=== PATIENT | male | born 1970 | race Caucasian/White ===

== ENCOUNTER → 2018-11-10 | Outpatient (CLI) | payer OTHER ==
--- NOTE | 2018-11-10 13:55 | MR ---
EXAMINATION TYPE: MR lumbar spine wo con DATE OF EXAM: 11/10/2018 COMPARISON: None HISTORY: Low back pain since 2006 TECHNIQUE: Multiplanar, multisequence images of the lumbar spine were acquired. L1-L2: Normal disc appearance without desiccation. No herniation, protrusion or disc bulging. No ca nal stenosis is present. Foramina are patent bilaterally. L2-L3: Facet arthropathy is causing some posterior lateral mass effect on the thecal sac from the lef t, no disc herniation or central stenosis. L3-L4: There is some facet arthropathy with hypertrophic change of the facets, some posterior lateral mass effect on the thecal sac in the left may be contributed by the scoliosis, no significant centra l stenosis. Posterior fusion of endplate disc complex causes mild anterior mass effect on the thecal sac. L4-L5: Normal disc appearance without desiccation. No herniation, protrusion or disc bulging. No ca nal stenosis is present. Foramina are patent bilaterally. L5-S1: Some minimal foraminal encroachment due to lateral extension endplate disc complex towards the right, no significant central stenosis or evident disc herniation Lumbar segments are intact. No paraspinal masses are identified. Conus medullaris has a normal appe arance. There is a gentle spinal curvature present. Lumbar vertebral bodies show preserved height. Th ere is multilevel spondylosis with endplate discogenic marrow signal change. Loss of disc height sign al is greatest at L3-4 compatible disc desiccation and degenerative disc disease. No significant spin al stenosis. IMPRESSION: Degenerative disc disease, scoliosis, facet arthropathy as described.
== END | disposition home or self-care (01) ==
LOC: RADMRIMAIN 09:41
PROVIDERS: ATTEND Physician Assistant
DX: M51.36 Other intervertebral disc degeneration, lumbar region (principal); M41.86 Other forms of scoliosis, lumbar region; M46.96 Unspecified inflammatory spondylopathy, lumbar region
CPT/HCPCS: 72148

== ENCOUNTER 2020-10-22 15:35 | Inpatient (IN) | payer OTHER ==
[2020-10-22] MEDS ORDERED: ACETAMINOPHEN TAB 325 MG TAB PO PRN (15:38)
--- NOTE | 2020-10-22 15:41 | ED ---
SOB HPI - General Stated Complaint: Covid+ sob Time Seen by Provider: 10/22/20 15:38 - History of Present Illness Initial Comments: Is a 50-year-old male with a history of hypertension who presents emergent department for cough, shortness of breath, loss of taste, generalized malaise. The patient states his symptoms started on 10/15/2020. It started with some upper respiratory symptoms and a mild cough however progress throughout the week. [facility] advice of the [place]. The patient was evaluated there and found to be 85% on room air when he arrived. This improved with a few liters of oxygen. He had a Coban swab performed that was positive. He was given a dose of oral Decadron at 10 mg and aspirin 324 mg and sent to the emergency department for further evaluation. The patient states that he is an ex-smoker however quit about 10-12 years ago. Otherwise he does not complain of any other medical problems. He denies any chest pain, nausea, vomiting, diarrhea. No leg swelling or pain. He otherwise denies any other acute complaints at this time. On arrival the patient appeared tachypneic and was satting 92% on 4 L. He was taken off of oxygen and desatted down to 88%. He was placed on 2 L nasal cannula with improvement to 93%. - Related Data Home Medications Medication Instructions Recorded Confirmed Cyclobenzaprine [Flexeril] 10 mg PO HS PRN 10/22/20 10/22/20 HYDROcodone/APAP 10-325MG [[place] 2 tab PO Q8H PRN 10/22/20 10/22/20 10-325] Meloxicam [Mobic] 7.5 mg PO DAILY 10/22/20 10/22/20 Prazosin HCl 4 mg PO HS 10/22/20 10/22/20 amLODIPine [Norvasc] 10 mg PO DAILY 10/22/20 10/22/20 atenoloL [Atenolol] 25 mg PO BID 10/22/20 10/22/20 traZODone HCL 150 mg PO HS PRN 10/22/20 10/22/20 Allergies Allergy/AdvReac Type Severity Reaction Status Date / Time No Known Allergies Allergy Verified 10/22/20 17:16 Review of Systems ROS Statement: Those systems with pertinent positive or pertinent negative responses have been documented in the HPI. ROS Other: All systems not noted in ROS Statement are negative. General Exam - General Exam Comments Initial Comments: Constitutional: Awake alert patient appears diaphoretic and uncomfortable Head: Normocephalic atraumatic Eyes: no conjunctival injection No scleral icterus EOMI Neck: No JVD Supple Heart: Tachycardia with regular rhythm normal S1-S2 no murmurs Lungs: Tachypneic Clear to auscultation bilaterally No wheezing No rales Abdomen: Soft nondistended nontender Extremities: Non edematous DP pulses intact Radial pulses intact Neuro: A&Ox3 No focal neurologic deficits Psych: Appropriate mood and affect Course Vital Signs 10/22/20 10/22/20 10/22/20 15:50 16:34 17:11 Temperature 100.5 F H 99 F Pulse Rate 109 H 98 Respiratory 22 22 20 Rate Blood Pressure 117/80 131/75 O2 Sat by Pulse 91 L 95 Oximetry - Reevaluation(s) Reevaluation #1: EKG showing sinus tachycardia with a rate of 102. There are no abnormal ST 7 changes or T-wave inversions. QTC 448. Other intervals normal. No ectopy. 10/22/20 16:10 Medical Decision Making - Medical Decision Making This 50-year-old male who presents emergency department for worsening cough and shortness of breath. The patient was found to be coated positive at outside facility and paperwork was supplied. He was given 10 mg of Decadron at that time and sent here. The patient was hypoxic at outside facility. He does appear tachypneic still however is saturating about 94% on 4 L currently. Chest x-ray consistent with Coban pneumonia. The patient's labwork was reviewed and showed an elevated CRP and LDH. D-dimer was not elevated. He did have a mild acute kidney injury site started him on gentle IV fluids. The patient is going to be admitted for hypoxia and Coban pneumonia for further treatment. - Lab Data Result diagrams: 10/22/20 16:30 10/22/20 16:30 Lab Results 10/22/20 10/22/20 10/22/20 Range/Units 16:30 16:30 16:30 WBC 4.9 (3.8-10.6) k/uL RBC 5.24 (4.30-5.90) m/uL Hgb 15.5 (13.0-17.5) gm/dL Hct 44.7 (39.0-53.0) % MCV 85.3 (80.0-100.0) fL MCH 29.6 (25.0-35.0) pg MCHC 34.7 (31.0-37.0) g/dL RDW 13.3 (11.5-15.5) % Plt Count 191 (150-450) k/uL MPV 7.6 Neutrophils % 73 % Lymphocytes % 19 % Monocytes % 6 % Eosinophils % 0 % Basophils % 1 % Neutrophils # 3.6 (1.3-7.7) k/uL Lymphocytes # 1.0 (1.0-4.8) k/uL Monocytes # 0.3 (0-1.0) k/uL Eosinophils # 0.0 (0-0.7) k/uL Basophils # 0.0 (0-0.2) k/uL PT 9.9 (9.0-12.0) sec INR 0.9 (<1.2) APTT 28.2 (22.0-30.0) sec D-Dimer 0.38 (<0.60) mg/L FEU Sodium 131 L (137-145) mmol/L Potassium 4.2 (3.5-5.1) mmol/L Chloride 96 L (98-107) mmol/L Carbon Dioxide 27 (22-30) mmol/L Anion Gap 8 mmol/L BUN 23 H (9-20) mg/dL Creatinine 1.56 H (0.66-1.25) mg/dL Est GFR (CKD-EPI)AfAm 59 (>60 ml/min/1.73 sqM) Est GFR (CKD-EPI)NonAf 51 (>60 ml/min/1.73 sqM) Glucose 111 H (74-99) mg/dL Plasma Lactic Acid Torsten (0.7-2.0) mmol/L Calcium 8.1 L (8.4-10.2) mg/dL Magnesium 2.0 (1.6-2.3) mg/dL Total Bilirubin 1.2 (0.2-1.3) mg/dL AST 54 (17-59) U/L ALT 31 (4-49) U/L Alkaline Phosphatase 42 (38-126) U/L Lactate Dehydrogenase 822 H (313-618) U/L C-Reactive Protein 40.4 H (<10.0) mg/L Total Protein 7.1 (6.3-8.2) g/dL Albumin 3.8 (3.5-5.0) g/dL 10/22/20 Range/Units 16:30 WBC (3.8-10.6) k/uL RBC (4.30-5.90) m/uL Hgb (13.0-17.5) gm/dL Hct (39.0-53.0) % MCV (80.0-100.0) fL MCH (25.0-35.0) pg MCHC (31.0-37.0) g/dL RDW (11.5-15.5) % Plt Count (150-450) k/uL MPV Neutrophils % % Lymphocytes % % Monocytes % % Eosinophils % % Basophils % % Neutrophils # (1.3-7.7) k/uL Lymphocytes # (1.0-4.8) k/uL Monocytes # (0-1.0) k/uL Eosinophils # (0-0.7) k/uL Basophils # (0-0.2) k/uL PT (9.0-12.0) sec INR (<1.2) APTT (22.0-30.0) sec D-Dimer (<0.60) mg/L FEU Sodium (137-145) mmol/L Potassium (3.5-5.1) mmol/L Chloride (98-107) mmol/L Carbon Dioxide (22-30) mmol/L Anion Gap mmol/L BUN (9-20) mg/dL Creatinine (0.66-1.25) mg/dL Est GFR (CKD-EPI)AfAm (>60 ml/min/1.73 sqM) Est GFR (CKD-EPI)NonAf (>60 ml/min/1.73 sqM) Glucose (74-99) mg/dL Plasma Lactic Acid Torsten 1.3 (0.7-2.0) mmol/L Calcium (8.4-10.2) mg/dL Magnesium (1.6-2.3) mg/dL Total Bilirubin (0.2-1.3) mg/dL AST (17-59) U/L ALT (4-49) U/L Alkaline Phosphatase (38-126) U/L Lactate Dehydrogenase (313-618) U/L C-Reactive Protein (<10.0) mg/L Total Protein (6.3-8.2) g/dL Albumin (3.5-5.0) g/dL Disposition Clinical Impression: Pneumonia due to COVID-19 virus Disposition: ADMITTED IP TO THIS HOSP Condition: Serious Referrals: [facility],Clinic [Primary Care Provider] - 1-2 days
--- NOTE | 2020-10-22 16:48 | XR ---
EXAMINATION TYPE: XR chest 1V portable DATE OF EXAM: 10/22/2020 COMPARISON: 08/21/2010. HISTORY: Cough and Covid positive. TECHNIQUE: Single frontal view of the chest is obtained. FINDINGS: There is mild to moderate patchy opacities in the mid to lower lungs, greater on the right . No significant pleural effusion, or pneumothorax seen. The cardiac silhouette size is within ric l limits. The osseous structures are intact. IMPRESSION: Mild to moderate infiltrates.
[2020-10-22 17:15] LABS: Albumin 3.8 g/dL (3.5-5.0); Calcium 8.1 mg/dL (8.4-10.2); D-Dimer 0.38 mg/L FEU (<0.60); INR 0.9 (<1.2); Partial Thromboplastin Time 28.2 sec (22.0-30.0); Potassium 4.2 mmol/L (3.5-5.1); Prothrombin Time 9.9 sec (9.0-12.0); Total Bilirubin 1.2 mg/dL (0.2-1.3); Total Protein 7.1 g/dL (6.3-8.2)
[2020-10-22 17:17] LABS: Basophils % (A) 1 %; Eosinophils % (A) 0 %; HCT 44.7 % (39.0-53.0); HGB 15.5 gm/dL (13.0-17.5); Lymphocytes % (A) 19 %; MCH 29.6 pg (25.0-35.0); MCHC 34.7 g/dL (31.0-37.0); MCV 85.3 fL (80.0-100.0); Mean Platelet Volume 7.6; Monocytes # (A) 0.3 k/uL (0-1.0); Monocytes % (A) 6 %; Neutrophils # (A) 3.6 k/uL (1.3-7.7); Neutrophils % (A) 73 %; Platelet Count 191 k/uL (150-450); RBC 5.24 m/uL (4.30-5.90); RDW 13.3 % (11.5-15.5); WBC 4.9 k/uL (3.8-10.6)
[2020-10-22 17:21] LABS: C Reactive Protein 40.4 mg/L (<10.0)
[2020-10-22] MEDS ORDERED: IPRATROPIUM-ALBUTEROL 3 ML NEB INHALATION STA (17:39)
[2020-10-22] MEDS ORDERED: NALOXONE 0.4 MG/ML 1 ML VIAL IV PRN (17:47)
[2020-10-22] MEDS: ALBUTEROL HFA INHALER INHALATION PRN (18:14)
[2020-10-22 18:27] LABS: ABG Base Excess 1.6 mmol/L; ABG HCO3 26 mmol/L (21-25); ABG Oxygen Saturation 91.7 % (94-97); ABG PCO2 40 mmHg (35-45); ABG PH 7.42 (7.35-7.45); ABG TCO2 27 mmol/L (19-24); Allen Test Performed? Yes
[2020-10-22 18:28] LABS: ABG PO2 59 mmHg (83-108)
[2020-10-22] MEDS: SODIUM CHLORIDE 0.9% 1,000 ML IV SCH (20:13)
[2020-10-22] MEDS: HYDROcodone/APAP 10-325MG 1 EACH TAB PO PRN (20:14)
[2020-10-22] MEDS ORDERED: traZODone HCL 50 MG TAB PO PRN (22:30)
[2020-10-22] MEDS: atenoloL 25 MG TAB PO SCH (22:58)
[2020-10-22] MEDS: DOXAZOSIN 4 MG TAB PO SCH (22:58)
[2020-10-23] MEDS ORDERED: ALPRAZolam 0.25 MG TAB PO PRN (00:42)
--- NOTE | 2020-10-23 00:57 | P.HPIM ---
History of Present Illness H&P Date: 10/22/20 Chief Complaint: SOB 50 -year-old male with hypertension Comes in due to hypoxemia. He reports one-week history of progressive shortness of breath nonproductive cough malaise and loss of taste sensation. He was very surprised one was told that he tested positive for covid. He believes that he had good immune system as he was healthy for the past 8 years he claims that he was using masks and denies any contact with any Covid patient's. For the past week he thought that he's coming down on the pneumonia or some cold symptoms. Today he went to an urgent care and was found to have hypoxemia in the mid 80s on room air and tested positive for Covid. He denies any fevers or chills he denies any body aches he denies any GI symptoms he denies any chest pain. However he does feel congested He is otherwise compliant with his medications In the ED he was placed on oxygen currently on 4 L nasal cannula he was given Decadron chest x-ray showed mild to moderate infiltrates Review of Systems Pertinent positives as noted in HPI. All other systems were reviewed and are negative Past Medical History Past Medical History: Hypertension Additional Past Medical History / Comment(s): back pain History of Any Multi-Drug Resistant Organisms: None Reported Past Surgical History: No Surgical Hx Reported Past Psychological History: No Psychological Hx Reported Smoking Status: Former smoker Past Alcohol Use History: None Reported Past Drug Use History: None Reported - Past Family History Family Family Medical History: No Reported History Medications and Allergies Home Medications Medication Instructions Recorded Confirmed Type Cyclobenzaprine [Flexeril] 10 mg PO HS PRN 10/22/20 10/22/20 History HYDROcodone/APAP 10-325MG [[place] 2 tab PO Q8H PRN 10/22/20 10/22/20 History 10-325] Meloxicam [Mobic] 7.5 mg PO DAILY 10/22/20 10/22/20 History Prazosin HCl 4 mg PO HS 10/22/20 10/22/20 History amLODIPine [Norvasc] 10 mg PO DAILY 10/22/20 10/22/20 History atenoloL [Atenolol] 25 mg PO BID 10/22/20 10/22/20 History traZODone HCL 150 mg PO HS PRN 10/22/20 10/22/20 History Allergies Allergy/AdvReac Type Severity Reaction Status Date / Time No Known Allergies Allergy Verified 10/22/20 17:16 Physical Exam Vitals: Vital Signs Temp Pulse Resp BP Pulse Ox 10/22/20 19:16 96 20 139/78 94 L 10/22/20 18:17 96 20 122/71 93 L 10/22/20 17:11 99 F 98 20 131/75 95 10/22/20 16:34 22 10/22/20 15:50 100.5 F H 109 H 22 117/80 91 L Intake and Output 10/22/20 10/22/20 10/22/20 06:59 14:59 22:59 Other: Weight 136.078 kg Constitutional: No acute distress, conversant, pleasant Eyes: Anicteric sclerae, moist conjunctiva, Pupils equal round reactive to light ENMT: NC/AT Oropharynx clear, no erythema, or exudates Neck: Supple, FROM, no masses, or JVD No carotid bruits No thyromegaly Lungs: Clear to auscultation Clear to percussion Normal respiratory effort, no accessory muscle use Cardiovascular: Heart regular in rate and rhythm, No murmurs, gallops, or rubs No peripheral edema Abdominal: Soft Nontender, no guarding, rebound or rigidity Abdomen moving with respiration Normoactive bowel sounds No hepatomegaly, No splenomegaly No palpable mass No abdominal wall hernia noted Skin: Normal temperature, tone, texture, turgor No induration No subcutaneous nodules No rash, lesions No ulcers Extremities: No digital cyanosis No clubbing Pedal pulses intact and symmetrical Radial pulses intact and symmetrical No calf tenderness Psychiatric: Alert and oriented to person, place and time Appropriate affect fair judgement Neuro Muscles Strength 5/5 in all 4 extremities Sensation to light touch grossly present throughout Cranial nerves II-XII grossly intact No focal sensory deficits Lymphatics: no palpable cervical or supraclavicular , or inguinal lymph nodes Results CBC & Chem 7: 10/22/20 16:30 10/22/20 16:30 Labs: Abnormal Lab Results - Last 24 Hours (Table) 10/22/20 10/22/20 Range/Units 16:30 18:20 ABG pO2 59 L* (83-108) mmHg ABG HCO3 26 H (21-25) mmol/L ABG Total CO2 27 H (19-24) mmol/L ABG O2 Saturation 91.7 L (94-97) % Sodium 131 L (137-145) mmol/L Chloride 96 L (98-107) mmol/L BUN 23 H (9-20) mg/dL Creatinine 1.56 H (0.66-1.25) mg/dL Glucose 111 H (74-99) mg/dL Calcium 8.1 L (8.4-10.2) mg/dL Lactate Dehydrogenase 822 H (313-618) U/L C-Reactive Protein 40.4 H (<10.0) mg/L Assessment and Plan Assessment: Acute hypoxic respiratory failure Covid pneumonitis Hypertension AK I Plan Supportive care Supplemental oxygen as needed Patient started on Decadron Gentle IV fluid hydration with normal saline Negative LDH elevated CRP elevated Pulmonary consult CODE STATUS: Full code DVT prophylaxis: Lovenox Discussed with: Patient, ER, RN Anticipated length of stay more than [address]: Home A total of 75 minutes was spent on the care of this complex patient more than 50% of the time was spent in counseling and care coordination.
[2020-10-23 04:59] LABS: Ferritin 337.5 ng/mL (22.0-322.0)
[2020-10-23] MEDS: SODIUM CHLORIDE 0.9% 1,000 ML IV SCH ×2 (08:33→21:00)
[2020-10-23] MEDS: atenoloL 25 MG TAB PO SCH ×2 (08:34→21:00)
[2020-10-23] MEDS: ENOXAPARIN 40 MG/0.4 ML SYRINGE SQ SCH (08:34)
[2020-10-23] MEDS: DEXAMETHASONE SOD PHOSPHATE 10 MG/ML 1 ML VIAL IV SCH (08:34)
[2020-10-23] MEDS: amLODIPine 10 MG TAB PO SCH (08:34)
[2020-10-23] MEDS: MELOXICAM 7.5 MG TAB PO SCH (08:34)
[2020-10-23] MEDS: ALBUTEROL HFA INHALER INHALATION PRN (11:32)
[2020-10-23 11:41] LABS: African American GFR (CKD) >90 (>60 ml/min/1.73 sqM); Anion Gap 14 mmol/L; Blood Urea Nitrogen 25 mg/dL (9-20); Calcium 8.3 mg/dL (8.4-10.2); Carbon Dioxide 24 mmol/L (22-30); Chloride 97 mmol/L (98-107); Glucose 170 mg/dL (74-99); Non-African American GFR(CKD) 84 (>60 ml/min/1.73 sqM); Potassium 4.6 mmol/L (3.5-5.1); Sodium 135 mmol/L (137-145)
--- NOTE | 2020-10-23 11:54 | P.CNPUL ---
History of Present Illness Consult date: 10/23/20 Reason for consult: dyspnea, pneumonia History of present illness: 70-year-old male patient who was hospitalized for COVID 19 related pneumonia and the patient is currently on 4 L of oxygen by nasal cannula. The patient came into the emergency room because of one-week history of progressive worsening shortness of breath and cough and malaise and loss in the paced. In the emergency, the patient was found to be hypoxic at a pulse ox of 80% on room air. He tested positive for COVID patient is currently on 4 L about 2 by nasal cannula. The chest x-ray is showing diffuse bilateral pulmonary infiltrates patchy in the mid and the lower lung brady bilaterally more so on the right. The patient also had a LDH level of 822 and the pro-calcitonin level was 0.15 and a CRP was 40.4. Initial creatinine was 1.5 and with fluid resuscitation, the patient's creatinine improved and normalized. At this point in time, the patient is receiving Decadron 6 mg IV on a daily basis. He will be also good candidate for him to severe. He has no major medical problems and comorbidities. He has hypertension and takes and hypertensive medication and takes also medication for BPH. He is obese and he carries a mass index of 39.6 Review of Systems Constitutional: Reports fatigue, Reports weakness Eyes: denies as per HPI, denies blurred vision, denies bulging eye, denies decreased vision, denies diplopia, denies discharge, denies dry eye, denies irritation, denies itching, denies pain, denies photophobia, denies loss of peripheral vision, denies loss of vision, denies tunnel vision/blind spots Ears: deny: decreased hearing, ear discharge, earache, tinnitus Ears, nose, mouth and throat: Reports as per HPI Breasts: absent: as per HPI, gynecomastia Cardiovascular: Reports dyspnea on exertion Respiratory: Reports cough, Reports dyspnea Gastrointestinal: Reports as per HPI Genitourinary: Reports as per HPI Musculoskeletal: Reports as per HPI Musculoskeletal: absent: ankle pain, ankle stiffness, ankle swelling Integumentary: Reports as per HPI Neurological: Reports as per HPI Psychiatric: Reports as per HPI Endocrine: Reports as per HPI Hematologic/Lymphatic: Reports as per HPI Allergic/Immunologic: Reports as per HPI Past Medical History Past Medical History: GERD/Reflux, Hypertension, Respiratory Disorder Additional Past Medical History / Comment(s): Pt tested covid + on 10/22/20 at [facility]. Other hx: Chronic low back pain, bronchitis History of Any Multi-Drug Resistant Organisms: None Reported Past Surgical History: Appendectomy, Tonsillectomy Past Anesthesia/Blood Transfusion Reactions: No Reported Reaction Smoking Status: Former smoker - Past Family History Father History Unknown: Yes Family Medical History: Unable to Obtain Additional Family Medical History / Comment(s): Pt grew up in foster care and only knows that his father is . Mother History Unknown: Yes Family Medical History: Unable to Obtain Additional Family Medical History / Comment(s): Pt grew up in foster care and only knows his mother is . Family Family Medical History: No Reported History Medications and Allergies Home Medications Medication Instructions Recorded Confirmed Type Cyclobenzaprine [Flexeril] 10 mg PO HS PRN 10/22/20 10/22/20 History HYDROcodone/APAP 10-325MG [[place] 2 tab PO Q8H PRN 10/22/20 10/22/20 History 10-325] Meloxicam [Mobic] 7.5 mg PO DAILY 10/22/20 10/22/20 History Prazosin HCl 4 mg PO HS 10/22/20 10/22/20 History amLODIPine [Norvasc] 10 mg PO DAILY 10/22/20 10/22/20 History atenoloL [Atenolol] 25 mg PO BID 10/22/20 10/22/20 History traZODone HCL 150 mg PO HS PRN 10/22/20 10/22/20 History Allergies Allergy/AdvReac Type Severity Reaction Status Date / Time No Known Allergies Allergy Verified 10/22/20 17:16 Physical Exam Vitals: Vital Signs Temp Pulse Pulse Resp BP BP Pulse Ox 10/23/20 08:00 97.5 F L 71 18 143/81 93 L 10/23/20 05:53 55 L 22 92 L 10/23/20 03:15 82 22 92 L 10/23/20 01:02 80 22 128/85 91 L 10/22/20 22:58 90 20 117/77 93 L 10/22/20 22:00 97.9 F 83 22 122/79 93 L 10/22/20 20:16 94 20 127/72 94 L 10/22/20 19:16 96 20 139/78 94 L 10/22/20 18:17 96 20 122/71 93 L 10/22/20 17:11 99 F 98 20 131/75 95 10/22/20 16:34 22 10/22/20 15:50 100.5 F H 109 H 22 117/80 91 L Intake and Output 10/22/20 10/23/20 10/23/20 22:59 06:59 14:59 Other: Weight 136.078 kg 136.078 kg The patient appeared well nourished and normally developed. Vital signs as documented. Head exam is unremarkable. No scleral icterus or corneal arcus noted. Neck is without jugular venous distension, thyromegaly, or carotid bruits. Carotid upstrokes are brisk bilaterally. Lungs are showing crackles in lung bases bilaterally. Cardiac exam reveals the PMI to be normally sized and situated. Rhythm is regular. First and second heart sounds normal. No murmurs, rubs or gallops. Abdominal exam reveals normal bowel sounds, no masses, no organomegaly and no aortic enlargement. Extremities are nonedematous and both femoral and pedal pulses are normal.Examination of the skin revealed no evidence of significant rashes, suspicious appearing nevi or other concerning lesio ns.Neurologically, the patient is awake and alert and the patient does not have any focal neurological deficit. Cranial nerves are essentially intact. Results - Laboratory Findings CBC and BMP: 10/22/20 16:30 10/23/20 10:42 ABG ABG pH 7.42 (7.35-7.45) 10/22/20 18:20 ABG pCO2 40 mmHg (35-45) 10/22/20 18:20 ABG pO2 59 mmHg (83-108) L* 10/22/20 18:20 ABG O2 Saturation 91.7 % (94-97) L 10/22/20 18:20 PT/INR, D-dimer PT 9.9 sec (9.0-12.0) 10/22/20 16:30 INR 0.9 (<1.2) 10/22/20 16:30 D-Dimer 0.38 mg/L FEU (<0.60) 10/22/20 16:30 Abnormal lab findings: Abnormal Labs 10/22/20 10/22/20 10/22/20 16:30 16:30 18:20 ABG pO2 59 L* ABG HCO3 26 H ABG Total CO2 27 H ABG O2 Saturation 91.7 L Sodium 131 L Chloride 96 L BUN 23 H Creatinine 1.56 H Glucose 111 H Calcium 8.1 L Ferritin 337.5 H Lactate Dehydrogenase 822 H C-Reactive Protein 40.4 H Procalcitonin 0.15 H 10/23/20 10:42 ABG pO2 ABG HCO3 ABG Total CO2 ABG O2 Saturation Sodium 135 L Chloride 97 L BUN 25 H Creatinine Glucose 170 H Calcium 8.3 L Ferritin Lactate Dehydrogenase C-Reactive Protein Procalcitonin - Diagnostic Findings Chest x-ray: image reviewed Assessment and Plan Plan: 1 acute Covid likely related pneumonia, in addition to constitutions symptoms, elevated inflammatory markers and hypoxemia. The patient was tested positive on 10/02/2020 [facility]. He was having symptoms approximately less than a week prior to his diagnosis, probably the symptoms started on the 2020. 2 acute hypoxic respiratory failure secondary to above currently on 4 L of oxygen by nasal cannula 3 shortness of breath secondary to above 4 acute kidney injury, improved with fluid resuscitation 5 obesity with BMI of 39.6 6 hypertension Plan Titrate FiO2 to maintain a saturation above 90% IV fluids NSS@75cc/ an hour Continue Decadron 6 mg on a daily basis Start the patient on Remdesivir protocol Order units of convalescent plasma monitor the patient is still early in the disease course Lovenox 40 mg subcu poorly the prophylaxis Routine and multivitamins We'll continue to follow
--- NOTE | 2020-10-23 12:28 | P.PN ---
Subjective Progress Note Date: 10/23/20 Patient was seen and evaluated this morning. No significant improvement in his shortness of breath compared to yesterday. Patient became tachypneic when I asked him to sit up on the side of the bed. He is currently on 4 L of oxygen via nasal cannula and satting 91%. No acute events overnight. Objective - Vital Signs Vital signs: Vital Signs Temp 97.5 F L 10/23/20 08:00 Pulse 71 10/23/20 08:00 Resp 18 10/23/20 08:00 BP 143/81 10/23/20 08:00 Pulse Ox 93 L 10/23/20 08:00 Intake & Output 10/22/20 10/23/20 10/23/20 18:59 06:59 18:59 Weight 136.078 kg 136.078 kg - Exam General: The patient is awake and alert, in no distress Eye: there is normal conjunctiva bilaterally. Neck: The neck is supple, there is no JVD. Cardiovascular: Normal S1-S2, no S3-S4, no murmurs. Respiratory: Lungs clear to auscultation bilaterally Gastrointestinal: Abdomen is soft, nontender Musculoskeletal: There is no pedal edema. Neurological:. Speech is normal. Skin: Skin is warm and dry - Labs CBC & Chem 7: 10/22/20 16:30 10/23/20 10:42 Labs: Abnormal Lab Results - Last 24 Hours (Table) 10/22/20 10/22/20 10/22/20 Range/Units 16:30 16:30 18:20 ABG pO2 59 L* (83-108) mmHg ABG HCO3 26 H (21-25) mmol/L ABG Total CO2 27 H (19-24) mmol/L ABG O2 Saturation 91.7 L (94-97) % Sodium 131 L (137-145) mmol/L Chloride 96 L (98-107) mmol/L BUN 23 H (9-20) mg/dL Creatinine 1.56 H (0.66-1.25) mg/dL Glucose 111 H (74-99) mg/dL Calcium 8.1 L (8.4-10.2) mg/dL Ferritin 337.5 H (22.0-322.0) ng/mL Lactate Dehydrogenase 822 H (313-618) U/L C-Reactive Protein 40.4 H (<10.0) mg/L Procalcitonin 0.15 H (0.02-0.09) ng/mL 10/23/20 Range/Units 10:42 ABG pO2 (83-108) mmHg ABG HCO3 (21-25) mmol/L ABG Total CO2 (19-24) mmol/L ABG O2 Saturation (94-97) % Sodium 135 L (137-145) mmol/L Chloride 97 L (98-107) mmol/L BUN 25 H (9-20) mg/dL Creatinine (0.66-1.25) mg/dL Glucose 170 H (74-99) mg/dL Calcium 8.3 L (8.4-10.2) mg/dL Ferritin (22.0-322.0) ng/mL Lactate Dehydrogenase (313-618) U/L C-Reactive Protein (<10.0) mg/L Procalcitonin (0.02-0.09) ng/mL Assessment and Plan Assessment: This is a 50-year-old male with past medical history noted below who presented to the emergency room with worsening shortness of breath and malaise. Patient was evaluated in the ER and admitted to the hospital for further management of his medical problems noted below 1. COVID-19 pneumonia, started on Decadron 6 mg daily day #2. Seen and evaluated by pulmonology. Awaiting further recommendation regarding initiating Remidesivir. Vitamin C, vitamin D, zinc sulfate, and melatonin daily. We will continue to monitor inflammatory markers. CRP and Procrit 60 and only slightly elevated. 2. Acute hypoxic respiratory failure, currently on 4 L of oxygen via nasal cannula satting around 91%. We will continue to monitor closely. 3. Acute kidney injury, most likely secondary to dehydration. Resolved with IV fluids. 3. Essential hypertension: Blood pressure within acceptable range. Continue home medication 4. DVT prophylaxis with subcu Lovenox Today, I reviewed his medication list and lab work results. Continue gentle IV fluid hydration with normal saline at 50 mL per hour. Appreciate [employer] consultant's recommendations. May repeat chest x-ray within the next day or 2.
[2020-10-23] MEDS: ZINC SULFATE 220 MG CAP PO SCH (12:55)
[2020-10-23] MEDS: ASCORBIC ACID 500 MG TAB PO SCH (12:55)
[2020-10-23] MEDS: CHOLECALCIFEROL 25 MCG (1000 IU) TABLET PO SCH (12:55)
[2020-10-23] MEDS ORDERED: REMDESIVIR 200 MG in SODIUM CHLORIDE 0.9% 250 ML IVPB ONE (13:00)
[2020-10-23] MEDS: MELATONIN 5 MG TABLET PO SCH (21:00)
[2020-10-23] MEDS: DOXAZOSIN 4 MG TAB PO SCH (21:00)
[2020-10-24 08:33] LABS: African American GFR (CKD) >90 (>60 ml/min/1.73 sqM); Anion Gap 5 mmol/L; Blood Urea Nitrogen 20 mg/dL (9-20); Carbon Dioxide 27 mmol/L (22-30); Chloride 103 mmol/L (98-107); Glucose 131 mg/dL (74-99); Non-African American GFR(CKD) >90 (>60 ml/min/1.73 sqM); Potassium 4.4 mmol/L (3.5-5.1); Sodium 135 mmol/L (137-145)
[2020-10-24] MEDS: ALBUTEROL HFA INHALER INHALATION PRN (09:03)
[2020-10-24] MEDS: MELOXICAM 7.5 MG TAB PO SCH (10:05)
[2020-10-24] MEDS: ASCORBIC ACID 500 MG TAB PO SCH (10:05)
[2020-10-24] MEDS: ZINC SULFATE 220 MG CAP PO SCH (10:05)
[2020-10-24] MEDS: amLODIPine 10 MG TAB PO SCH (10:06)
[2020-10-24] MEDS: CHOLECALCIFEROL 25 MCG (1000 IU) TABLET PO SCH (10:06)
[2020-10-24] MEDS: DEXAMETHASONE SOD PHOSPHATE 10 MG/ML 1 ML VIAL IV SCH (10:07)
[2020-10-24] MEDS: ENOXAPARIN 40 MG/0.4 ML SYRINGE SQ SCH (10:07)
[2020-10-24] MEDS: atenoloL 25 MG TAB PO SCH ×2 (10:07→20:47)
[2020-10-24] MEDS: HYDROcodone/APAP 10-325MG 1 EACH TAB PO PRN (10:36)
--- NOTE | 2020-10-24 11:06 | P.PN ---
Subjective Progress Note Date: 10/24/20 Patient is complaining of a lot of chronic back pain today. His back pain was exacerbated earlier when he got up and sat in the chair. He still requiring oxygen. Denies any significant shortness of breath. Objective - Vital Signs Vital signs: Vital Signs Temp 98.0 F 10/24/20 05:37 Pulse 98 10/24/20 05:37 Resp 18 10/24/20 05:37 BP 144/81 10/24/20 05:37 Pulse Ox 90 L 10/24/20 05:37 Intake & Output 10/23/20 10/24/20 10/24/20 18:59 06:59 18:59 Output Total 450 525 Balance -450 -525 Weight 136.078 kg Output: Urine 450 525 Other: Voiding Method Urinal Urinal # Voids 1 - Exam General: The patient is awake and alert, in no distress Eye: there is normal conjunctiva bilaterally. Neck: The neck is supple, there is no JVD. Cardiovascular: Normal S1-S2, no S3-S4, no murmurs. Respiratory: Lungs clear to auscultation bilaterally Gastrointestinal: Abdomen is soft, nontender Musculoskeletal: There is no pedal edema. Neurological:. Speech is normal. Skin: Skin is warm and dry - Labs CBC & Chem 7: 10/22/20 16:30 10/24/20 07:53 Labs: Abnormal Lab Results - Last 24 Hours (Table) 10/23/20 10/24/20 Range/Units 10:42 07:53 Sodium 135 L 135 L (137-145) mmol/L Chloride 97 L (98-107) mmol/L BUN 25 H (9-20) mg/dL Glucose 170 H 131 H (74-99) mg/dL Calcium 8.3 L 8.0 L (8.4-10.2) mg/dL Microbiology - Last 24 Hours (Table) 10/22/20 16:30 Blood Culture - Preliminary Blood No Growth after 24 hours 10/22/20 16:30 Blood Culture - Preliminary Blood No Growth after 24 hours Assessment and Plan Assessment: This is a 50-year-old male with past medical history noted below who presented to the emergency room with worsening shortness of breath and malaise. Patient was evaluated in the ER and admitted to the hospital for further management of his medical problems noted below 1. COVID-19 pneumonia, started on Decadron 6 mg daily day #3. Seen and evaluated by pulmonology. Also started on Remidesivir. Continue Vitamin C, vitamin D, zinc sulfate, and melatonin daily. We will continue to monitor inf lammatory markers. CRP and pro-calcitonin only slightly elevated. 2. Acute hypoxic respiratory failure, currently on 4 L of oxygen via nasal cannula satting around 91%. We will continue to monitor closely. 3. Acute kidney injury, most likely secondary to dehydration. Resolved with IV fluids. 4. Essential hypertension: Blood pressure within acceptable range. Continue home medication 4. DVT prophylaxis with subcu Lovenox Today, I reviewed his medication list and lab work results. Discontinue IV fluids. Appreciate [employer] consultant's recommendations. chest x-ray in the morning
[2020-10-24] MEDS: ALBUTEROL HFA INHALER INHALATION SCH ×3 (12:51→20:34)
[2020-10-24] MEDS: REMDESIVIR 100 MG in SODIUM CHLORIDE 0.9% 250 ML IVPB SCH (13:39)
[2020-10-24 14:42] VITALS: BMI 39.5
--- NOTE | 2020-10-24 14:58 | P.PN ---
Subjective Progress Note Date: 10/24/20 70-year-old male patient who was hospitalized for COVID 19 related pneumonia and the patient is currently on 4 L of oxygen by nasal cannula. The patient came into the emergency room because of one-week history of progressive worsening shortness of breath and cough and malaise and loss in the paced. In the emergency, the patient was found to be hypoxic at a pulse ox of 80% on room air. He tested positive for COVID patient is currently on 4 L about 2 by nasal cannula. The chest x-ray is showing diffuse bilateral pulmonary infiltrates patchy in the mid and the lower lung brady bilaterally more so on the right. The patient also had a LDH level of 822 and the pro-calcitonin level was 0.15 and a CRP was 40.4. Initial creatinine was 1.5 and with fluid resuscitation, the patient's creatinine improved and normalized. At this point in time, the patient is receiving Decadron 6 mg IV on a daily basis. He will be also good candidate for him to severe. He has no major medical problems and chaparro rbidities. He has hypertension and takes and hypertensive medication and takes also medication for BPH. He is obese and he carries a mass index of 39.6 On 10/24/2020 the patient is on 5 L nasal cannula. Doing well. His taken IV Decadron. There is also on REM and is day #2 of treatment. Convalescent plasma was also ordered. The unit is available and is going to be delivered to him today. Otherwise, he is doing well, essentially stable and unchanged compared to yesterday. Blood work including electrolytes showing no significant abnormalities today. No chest x-ray from today. His chest x-ray from admission has been noted. His creatinine is normalized is down to 0.95 and a patient r ecovered from his acute kidney injury. Objective - Vital Signs Vital signs: Vital Signs Temp 98.0 F 10/24/20 05:37 Pulse 98 10/24/20 05:37 Resp 18 10/24/20 05:37 BP 144/81 10/24/20 05:37 Pulse Ox 90 L 10/24/20 05:37 Intake & Output 10/23/20 10/24/20 10/24/20 18:59 06:59 18:59 Output Total 450 525 Balance -450 -525 Weight 136.078 kg 136.078 kg Output: Urine 450 525 Other: Voiding Method Urinal Urinal # Voids 1 - Exam The patient appeared well nourished and normally developed. Vital signs as documented. Head exam is unremarkable. No scleral icterus or corneal arcus noted. Neck is without jugular venous distension, thyromegaly, or carotid bruits. Carotid upstrokes are brisk bilaterally. Lungs are showing crackles in lung bases bilaterally. Cardiac exam reveals the PMI to be normally sized and situated. Rhythm is regular. First and second heart sounds normal. No murmurs, rubs or gallops. Abdominal exam reveals normal bowel sounds, no masses, no organomegaly and no aortic enlargement. Extremities are nonedematous and both femoral and pedal pulses are normal.Examination of the skin revealed no evidence of significant rashes, suspicious appearing nevi or other concerning lesions.Neurologically, the patient is awake and alert and the patient does not have any focal neurological deficit. Cranial nerves are essentially int - Labs CBC & Chem 7: 10/22/20 16:30 10/24/20 07:53 Labs: Abnormal Lab Results - Last 24 Hours (Table) 10/24/20 Range/Units 07:53 Sodium 135 L (137-145) mmol/L Glucose 131 H (74-99) mg/dL Calcium 8.0 L (8.4-10.2) mg/dL Microbiology - Last 24 Hours (Table) 10/22/20 16:30 Blood Culture - Preliminary Blood No Growth after 24 hours 10/22/20 16:30 Blood Culture - Preliminary Blood No Growth after 24 hours Assessment and Plan Plan: 1 acute Covid likely related pneumonia, in addition to constitutions symptoms, elevated inflammatory markers and hypoxemia. The patient was tested positive on 10/22/2020 admit express. He was having symptoms approximately less than a week prior to his diagnosis, probably the symptoms started on the 2020. Patient currently is on Decadron and the patient is also on REM the #2 and he'll be receiving a unit of convalescent plasma., Renal function is improved and the creatinine is normalized 2 acute hypoxic respiratory failure secondary to above currently on 4 L of oxygen by nasal cannula 3 shortness of breath secondary to above 4 acute kidney injury, improved with fluid resuscitation 5 obesity with BMI of 39.6 6 hypertension Plan Titrate FiO2 to maintain a saturation above 90%, , currently on oxygen at 5 L IV fluids [email or web address] Continue Decadron 6 mg on a daily basis Remdesivir protocol and the patient is currently on day #2 convalescent plasma and the patient will be receiving 1 unit Lovenox 40 mg subcu poorly the prophylaxis Routine and multivitamins We'll continue to follow
[2020-10-24] MEDS: SODIUM CHLORIDE 0.9% 1,000 ML IV SCH (16:43)
[2020-10-24] MEDS: MELATONIN 5 MG TABLET PO SCH (20:47)
[2020-10-24] MEDS: DOXAZOSIN 4 MG TAB PO SCH (20:48)
--- NOTE | 2020-10-25 07:16 | XR ---
EXAMINATION TYPE: XR chest 1V DATE OF EXAM: 10/25/2020 COMPARISON: 10/22/2020 HISTORY: Cough. TECHNIQUE: Single frontal view of the chest is obtained. FINDINGS: There are bilateral areas of multifocal consolidation compatible with pneumonia which appe ar increased relative to the prior exam. Heart size prominent stable. Underlying COPD suggested with no sizable pleural effusion or pneumothorax IMPRESSION: Bilateral progressive multifocal pneumonia.
[2020-10-25] MEDS: ENOXAPARIN 40 MG/0.4 ML SYRINGE SQ SCH (08:24)
[2020-10-25] MEDS: DEXAMETHASONE SOD PHOSPHATE 10 MG/ML 1 ML VIAL IV SCH (08:24)
[2020-10-25] MEDS: amLODIPine 10 MG TAB PO SCH (08:25)
[2020-10-25] MEDS: ZINC SULFATE 220 MG CAP PO SCH (08:25)
[2020-10-25] MEDS: MELOXICAM 7.5 MG TAB PO SCH (08:25)
[2020-10-25] MEDS: ASCORBIC ACID 500 MG TAB PO SCH (08:25)
[2020-10-25] MEDS: CHOLECALCIFEROL 25 MCG (1000 IU) TABLET PO SCH (08:25)
[2020-10-25] MEDS: atenoloL 25 MG TAB PO SCH ×2 (08:25→20:07)
[2020-10-25] MEDS: HYDROcodone/APAP 10-325MG 1 EACH TAB PO PRN ×2 (09:09→20:08)
[2020-10-25] MEDS: ALBUTEROL HFA INHALER INHALATION SCH ×4 (09:14→20:15)
[2020-10-25 10:17] LABS: African American GFR (CKD) 114.2 (60.0-200.0); Albumin 3.6 g/dL (3.80-4.90); Albumin/Globulin Ratio 1.71 (1.60-3.17); Anion Gap 8.7 mmol/L (4.00-12.00); BUN/Creat Ratio 23.33 Ratio (12.00-20.00); C Reactive Protein 4.1 mg/dL (0.0-0.8); Calcium 8.2 mg/dL (8.7-10.3); Carbon Dioxide 27.3 mmol/L (21.6-31.8); Globulin 2.1 g/dL (1.6-3.3); Non-African American GFR(CKD) 98.5 (60.0-200.0); Potassium 4.3 mmol/L (3.5-5.5); Total Bilirubin 0.8 mg/dL (0.3-1.2); Total Protein 5.7 g/dL (6.2-8.2)
--- NOTE | 2020-10-25 11:25 | P.PN ---
Subjective Progress Note Date: 10/25/20 Patient's oxygen requirements are increasing. He is currently on 15 L high flow. He reported worsening shortness of breath. Chest x-ray this morning showed worsening multifocal pneumonia. Inflammatory markers appear to be improving. No fevers documented over the last 24 hours. Objective - Vital Signs Vital signs: Vital Signs Temp 98.4 F 10/25/20 08:59 Pulse 88 10/25/20 08:59 Resp 18 10/25/20 08:59 BP 168/67 10/25/20 08:59 Pulse Ox 90 L 10/25/20 09:37 Intake & Output 10/24/20 10/25/20 10/25/20 18:59 06:59 18:59 Intake Total 281 Output Total 3 Balance 278 Weight 136.078 kg Intake: Blood Product 281 Ffp Convalescent Plasma 281 Cpd Unit [id number] Output: Urine 3 Stool 0 Other: Voiding Method Urinal - Exam General: The patient is awake and alert, in no distress Eye: there is normal conjunctiva bilaterally. Neck: The neck is supple, there is no JVD. Cardiovascular: Normal S1-S2, no S3-S4, no murmurs. Respiratory: Lungs clear to auscultation bilaterally Gastrointestinal: Abdomen is soft, nontender Musculoskeletal: There is no pedal edema. Neurological:. Speech is normal. Skin: Skin is warm and dry - Labs CBC & Chem 7: 10/22/20 16:30 10/25/20 06:33 Labs: Abnormal Lab Results - Last 24 Hours (Table) 10/25/20 Range/Units 06:33 BUN/Creatinine Ratio 23.33 H (12.00-20.00) Ratio Glucose 158 H (70-110) mg/dL Calcium 8.2 L (8.7-10.3) mg/dL AST 46 H (14-35) U/L Alkaline Phosphatase 40 L (41-126) U/L Lactate Dehydrogenase 467 H (120-246) U/L C-Reactive Protein 4.1 H (0.0-0.8) mg/dL Total Protein 5.7 L (6.2-8.2) g/dL Albumin 3.60 L (3.80-4.90) g/dL Microbiology - Last 24 Hours (Table) 10/22/20 16:30 Blood Culture - Preliminary Blood No Growth after 48 hours 10/22/20 16:30 Blood Culture - Preliminary Blood No Growth after 48 hours Assessment and Plan Assessment: This is a 50-year-old male with past medical history noted below who presented to the emergency room with worsening shortness of breath and malaise. Patient was evaluated in the ER and admitted to the hospital for further management of his medical problems noted below 1. COVID-19 pneumonia, started on Decadron 6 mg daily day #4. Seen and evaluated by pulmonology. started on Remidesivir. Continue Vitamin C, vitamin D, zinc sulfate, and melatonin daily. We will continue to monitor inflammatory markers. CRP and pro-calcitonin only slightly elevated. 2. Acute hypoxic respiratory failure, currently on 15 L via high flow nasal cannula and O2 sat ration is are around 86%. Patient will be transitioned to a nonrebreather today. Continue to monitor closely. 3. Acute kidney injury, most likely secondary to dehydration. Resolved with IV fluids. 4. Essential hypertension: Blood pressure within acceptable range. Continue home medication 5. DVT prophylaxis with subcu Lovenox 6. CODE STATUS: Patient is full code per his wishes. Discussed with him and his nurse Erica at bedside Today, I reviewed his medication list and lab work results. Add Mucinex 1200 mg twice daily. Carmen Jefferson as needed. Appreciate performance improvement consultant's recommendati ons.
[2020-10-25] MEDS: BENZONATATE 100 MG CAP PO PRN (12:28)
[2020-10-25] MEDS: guaiFENesin 600 MG TABLET.ER PO SCH ×2 (12:28→20:08)
[2020-10-25] MEDS: REMDESIVIR 100 MG in SODIUM CHLORIDE 0.9% 250 ML IVPB SCH (12:28)
[2020-10-25] MEDS ORDERED: TOCILIZUMAB 400 MG in SODIUM CHLORIDE 0.9% 80 ML IV ONE (13:00)
--- NOTE | 2020-10-25 13:30 | P.PN ---
Subjective Progress Note Date: 10/25/20 Principal diagnosis: COVID 19 70-year-old male patient who was hospitalized for COVID 19 related pneumonia and the patient is currently on 4 L of oxygen by nasal cannula. The patient came into the emergency room because of one-week history of progressive worsening shortness of breath and cough and malaise and loss in the paced. In the emergency, the patient was found to be hypoxic at a pulse ox of 80% on room air. He tested positive for COVID patient is currently on 4 L about 2 by nasal cannula. The chest x-ray is showing diffuse bilateral pulmonary infiltrates patchy in the mid and the lower lung brady bilaterally more so on the right. The patient also had a LDH level of 822 and the pro-calcitonin level was 0.15 and a CRP was 40.4. Initial creatinine was 1.5 and with fluid resuscitation, the patient's creatinine improved and normalized. At this point in time, the patient is receiving Decadron 6 mg IV on a daily basis. He will be also good candidate for him to severe. He has no major medical problems and comorbidities. He has hypertension and takes and hypertensive medication and takes also medication for BPH. He is obese and he carries a mass index of 39.6 On 10/24/2020 the patient is on 5 L nasal cannula. Doing well. His taken IV Decadron. There is also on REM and is day #2 of treatment. Convalescent plasma was also ordered. The unit is available and is going to be delivered to him today. Otherwise, he is doing well, essentially stable and unchanged compared to yesterday. Blood work including electrolytes showing no significant ab normalities today. No chest x-ray from today. His chest x-ray from admission has been noted. His creatinine is normalized is down to 0.95 and a patient recovered from his acute kidney injury. On 10/25/2020 patient seen in follow-up on medical floor, his oxygenation has worsened, is currently on her percent nonrebreather, and his pulse ox is 98%, afebrile, he feels short of breath, no significant cough, today's chest x-ray showed bilateral progressive multifocal pneumonia. Patient is on day 3 of Remdesivir, and he did receive 1 unit of convalescent plasma. Today's lab work was reviewed, electrolytes and renal profile are within normal limits, LDH is down to 467, CRP is 4.1, pro-calcitonin level is 0.11. Despite that patient shows worsening in his dyspnea and hypoxia. Blood cultures have been negative. Objective - Vital Signs Vital signs: Vital Signs Temp 98.4 F 10/25/20 08:59 Pulse 88 10/25/20 08:59 Resp 18 10/25/20 08:59 BP 168/67 10/25/20 08:59 Pulse Ox 90 L 10/25/20 09:37 Intake & Output 10/24/20 10/25/20 10/25/20 18:59 06:59 18:59 Intake Total 281 Output Total 3 Balance 278 Weight 136.078 kg Intake: Blood Product 281 Ffp Convalescent Plasma 281 Cpd Unit [id number] Output: Urine 3 Stool 0 Other: Voiding Method Urinal - Exam GENERAL EXAM: Alert, pleasant, 50-year-old white male, in moderate amount of respiratory distress, he is currently on 100% non-rebreather, with a pulse ox of 90% HEAD: Normocephalic/atraumatic. EYES: Normal reaction of pupils, equal size. Conjunctiva pink, sclera white. NOSE: Clear with pink turbinates. THROAT: No erythema or exudates. NECK: No masses, no JVD, no thyroid enlargement, no adenopathy. CHEST: No chest wall deformity. Symmetrical expansion. LUNGS: Equal air entry with diffuse crackles CVS: Regular rate and rhythm, normal S1 and S2, no gallops, no murmurs, no rubs ABDOMEN: Soft, nontender. No hepatosplenomegaly, normal bowel sounds, no guarding or rigidity. EXTREMITIES: No clubbing, no edema, no cyanosis, 2+ pulses and upper and lower extremities. MUSCULOSKELETAL: Muscle strength and tone normal. SPINE: No scoliosis or deformity SKIN: No rashes CENTRAL NERVOUS SYSTEM: Alert and oriented -3. No focal deficits, tone is normal in all 4 extremities. PSYCHIATRIC: Alert and oriented -3. Appropriate affect. Intact judgment and insight. - Labs CBC & Chem 7: 10/22/20 16:30 10/25/20 06:33 Labs: Abnormal Lab Results - Last 24 Hours (Table) 10/25/20 10/25/20 Range/Units 06:33 06:33 BUN/Creatinine Ratio 23.33 H (12.00-20.00) Ratio Glucose 158 H (70-110) mg/dL Calcium 8.2 L (8.7-10.3) mg/dL AST 46 H (14-35) U/L Alkaline Phosphatase 40 L (41-126) U/L Lactate Dehydrogenase 467 H (120-246) U/L C-Reactive Protein 4.1 H (0.0-0.8) mg/dL Total Protein 5.7 L (6.2-8.2) g/dL Albumin 3.60 L (3.80-4.90) g/dL Procalcitonin 0.11 H (0.02-0.09) ng/mL Microbiology - Last 24 Hours (Table) 10/22/20 16:30 Blood Culture - Preliminary Blood No Growth after 48 hours 10/22/20 16:30 Blood Culture - Preliminary Blood No Growth after 48 hours Assessment and Plan Plan: Assessment: 1 acute Covid likely related pneumonia, in addition to constitutions symptoms, elevated inflammatory markers and hypoxemia. The patient was tested positive on 10/22/2020 admit express. He was having symptoms approximately less than a week prior to his diagnosis, probably the symptoms started on the 2020. Patient currently is on Decadron and the patient is also on REM the #3 and a unit of convalescent plasma., Renal function is improved and the creatinine is normalized 2 acute hypoxic respiratory failure secondary to Covid 19 pneumonia, worsening 3 shortness of breath secondary to above 4 acute kidney injury, improved with fluid resuscitation 5 obesity with BMI of 39.6 6 hypertension Plan: We'll continue Remdesivir, we'll give the patient 2 doses of Tocilizumab, steroids, continue prophylactic anticoagulation, we'll followi inflammatory markers, chest x-ray, monitor for worsening dyspnea or worsening hypoxia, we will closely follow I performed a history & physical examination of the patient and discussed their management with my nurse practitioner, Myrna Lemus. I reviewed the nurse practitioner's note and agree with the documented findings and plan of care. Lung sounds are positive for diminished breath sounds. The findings and the impression was discussed with the patient. I attest to the documentation by the nurse practitioner. Time with Patient: Less than 30
[2020-10-25] MEDS: SODIUM CHLORIDE 0.9% 1,000 ML IV SCH (16:04)
[2020-10-25] MEDS: DOXAZOSIN 4 MG TAB PO SCH (20:08)
[2020-10-25] MEDS: MELATONIN 5 MG TABLET PO SCH (20:08)
[2020-10-26] MEDS ORDERED: TOCILIZUMAB 400 MG in SODIUM CHLORIDE 0.9% 80 ML IV ONE (01:00)
[2020-10-26] MEDS: ALBUTEROL HFA INHALER INHALATION SCH ×4 (07:09→18:51)
[2020-10-26 08:59] LABS: HGB 12.8 g/dL (13.0-17.0); MCH 28.6 pg (27.0-32.0); MCHC 32.8 g/dL (32.0-37.0); MCV 87.2 fL (80.0-97.0); Mean Platelet Volume 9.8 fL (9.5-12.2); Platelet Count 249 X 10*3/uL (140-440); RBC 4.47 X 10*6/uL (4.40-5.60); RDW 12.8 % (11.5-14.5); WBC 5.18 X 10*3/uL (4.50-10.00)
[2020-10-26] MEDS: guaiFENesin 600 MG TABLET.ER PO SCH ×2 (09:08→20:52)
[2020-10-26] MEDS: atenoloL 25 MG TAB PO SCH ×2 (09:09→20:53)
[2020-10-26] MEDS: CHOLECALCIFEROL 25 MCG (1000 IU) TABLET PO SCH (09:09)
[2020-10-26] MEDS: MELOXICAM 7.5 MG TAB PO SCH (09:09)
[2020-10-26] MEDS: amLODIPine 10 MG TAB PO SCH (09:09)
[2020-10-26] MEDS: ZINC SULFATE 220 MG CAP PO SCH (09:09)
[2020-10-26] MEDS: ASCORBIC ACID 500 MG TAB PO SCH (09:10)
[2020-10-26] MEDS: HYDROcodone/APAP 10-325MG 1 EACH TAB PO PRN (09:11)
[2020-10-26] MEDS: ENOXAPARIN 40 MG/0.4 ML SYRINGE SQ SCH (09:11)
[2020-10-26] MEDS: DEXAMETHASONE SOD PHOSPHATE 10 MG/ML 1 ML VIAL IV SCH (09:11)
[2020-10-26] MEDS: BENZONATATE 100 MG CAP PO PRN (09:22)
[2020-10-26 09:27] LABS: African American GFR (CKD) 114.2 (60.0-200.0); Albumin 3.3 g/dL (3.80-4.90); Albumin/Globulin Ratio 1.43 (1.60-3.17); Anion Gap 5.3 mmol/L (4.00-12.00); BUN/Creat Ratio 28.89 Ratio (12.00-20.00); Calcium 8.4 mg/dL (8.7-10.3); Carbon Dioxide 27.7 mmol/L (21.6-31.8); Globulin 2.3 g/dL (1.6-3.3); Non-African American GFR(CKD) 98.5 (60.0-200.0); Potassium 4.5 mmol/L (3.5-5.5); Total Bilirubin 0.9 mg/dL (0.2-1.2); Total Protein 5.6 g/dL (6.2-8.2)
[2020-10-26 10:35] LABS: Basophils # (A) 0.01 X 10*3/uL (0.00-0.10); Basophils % (A) 0.2 %; Eosinophils # (A) 0 X 10*3/uL (0.04-0.35); Eosinophils % (A) 0 %; Lymphocytes # (A) 1.24 X 10*3/uL (0.90-5.00); Lymphocytes % (A) 23.9 %; Monocytes # (A) 0.34 X 10*3/uL (0.20-1.00); Monocytes % (A) 6.6 %; Neutrophils # (A) 3.53 X 10*3/uL (1.80-7.70); Neutrophils % (A) 68.1 %
--- NOTE | 2020-10-26 10:44 | P.PN ---
Subjective Progress Note Date: 10/26/20 70-year-old male patient who was hospitalized for COVID 19 related pneumonia 10/26/2020, the patient's oxygenation obviously has gotten worse and the patient is on 15 L high flow and occasionally is using the 100% nonrebreather facemask. His current pulse ox is running in the order of 92-93%. The patient's blood work from today is showing a d-dimer of 0.8, his LDH from yesterday was 467 and his CRP from yesterday was 4.1. The patient is afebrile. He is currently receiving treatment with IV Decadron. He is also on REM day number 4 . He also received Tocilizumab and this was given to him yesterday because of worsening his oxygenation. He was also given, less than plasma time of admission, one unit. Objective - Vital Signs Vital signs: Vital Signs Temp 98.2 F 10/26/20 09:04 Pulse 72 10/26/20 09:04 Resp 24 10/26/20 09:04 BP 129/78 10/26/20 09:04 Pulse Ox 87 L 10/26/20 09:04 Intake & Output 10/25/20 10/26/20 10/26/20 18:59 06:59 18:59 Output Total 400 Balance -400 Output: Urine 400 Other: Voiding Method Urinal # Voids 3 1 - Exam The patient appeared well nourished and normally developed him a currently on 15 L of oxygen by nasal cannula and his pulse ox is ranging between 87-91%. Vital signs as documented. Head exam is unremarkable. No scleral icterus or corneal arcus noted. Neck is without jugular venous distension, thyromegaly, or carotid bruits. Carotid upstrokes are brisk bilaterally. Lungs are showing crackles in lung bases bilaterally. Cardiac exam reveals the PMI to be normally sized and situated. Rhythm is regular. First and second heart sounds normal. No murmurs, rubs or gallops. Abdominal exam reveals normal bowel sounds, no masses, no organomegaly and no aortic enlargement. Extremities are nonedematous and both femoral and pedal pulses are normal.Examination of the skin revealed no evidence of significant rashes, suspicious appearing nevi or other concerning lesions.Neurologically, the patient is awake and alert and the patient does not have any focal neurological deficit. Cranial nerves are essentially int - Labs CBC & Chem 7: 10/26/20 06:04 10/26/20 06:04 Labs: Abnormal Lab Results - Last 24 Hours (Table) 10/25/20 10/26/20 10/26/20 Range/Units 06:33 06:04 06:04 Hgb 12.8 L (13.0-17.0) g/dL Hct 39.0 L (39.6-50.0) % Immature Gran # 0.06 H (0.00-0.04) X 10*3/uL Eosinophils # 0 L (0.04-0.35) X 10*3/uL D-Dimer (<0.60) mg/L FEU BUN/Creatinine Ratio 28.89 H (12.00-20.00) Ratio Glucose 136 H (70-110) mg/dL Calcium 8.4 L (8.7-10.3) mg/dL AST 39 H (14-35) U/L Alkaline Phosphatase 39 L (41-126) U/L Total Protein 5.6 L (6.2-8.2) g/dL Albumin 3.30 L (3.80-4.90) g/dL Albumin/Globulin Ratio 1.43 L (1.60-3.17) g/dL Procalcitonin 0.11 H (0.02-0.09) ng/mL 10/26/20 Range/Units 06:04 Hgb (13.0-17.0) g/dL Hct (39.6-50.0) % Immature Gran # (0.00-0.04) X 10*3/uL Eosinophils # (0.04-0.35) X 10*3/uL D-Dimer 0.81 H (<0.60) mg/L FEU BUN/Creatinine Ratio (12.00-20.00) Ratio Glucose (70-110) mg/dL Calcium (8.7-10.3) mg/dL AST (14-35) U/L Alkaline Phosphatase (41-126) U/L Total Protein (6.2-8.2) g/dL Albumin (3.80-4.90) g/dL Albumin/Globulin Ratio (1.60-3.17) g/dL Procalcitonin (0.02-0.09) ng/mL Microbiology - Last 24 Hours (Table) 10/22/20 16:30 Blood Culture - Preliminary Blood No Growth after 72 hours 10/22/20 16:30 Blood Culture - Preliminary Blood No Growth after 72 hours Assessment and Plan Plan: 1 acute Covid likely related pneumonia, in addition to constitutions symptoms, elevated inflammatory markers and hypoxemia. The patient was tested positive on 10/22/2020 admit express. He was having symptoms approximately less than a week prior to his diagnosis, probably the symptoms started on the 2020. Patient currently is on Decadron and the patient is also on REM the #4 and he'll be receiving a unit of convalescent plasma,, He also received Tocilizumab 400 mg, 2 2 acute hypoxic respiratory failure secondary to above currently on 15 L of oxygen by nasal cannula 3 shortness of breath secondary to above 4 acute kidney injury, improved with fluid resuscitation, recovered 5 obesity with BMI of 39.6 6 hypertension Plan Titrate FiO2 to maintain a saturation above 90%, , currently on oxygen at 15 L IV fluids [email or web address] Continue Decadron 6 mg on a daily basis Remdesivir protocol and the patient is currently on day #4 convalescent plasma and the patient will be receiving 1 unit Tocilizumab 400 iv x2 given Lovenox 40 mg subcu poorly the prophylaxis Routine and multivitamins Ordered a chest x-ray tomorrow We'll continue to follow
--- NOTE | 2020-10-26 11:59 | P.PN ---
Subjective Progress Note Date: 10/26/20 Patient is feeling about the same as yesterday. His oxygen requirements are not improving. He is still having a lot of cough despite taking cough medicine. Objective - Vital Signs Vital signs: Vital Signs Temp 98.2 F 10/26/20 09:04 Pulse 72 10/26/20 09:04 Resp 24 10/26/20 09:04 BP 129/78 10/26/20 09:04 Pulse Ox 87 L 10/26/20 09:04 Intake & Output 10/25/20 10/26/20 10/26/20 18:59 06:59 18:59 Output Total 400 Balance -400 Output: Urine 400 Other: Voiding Method Urinal # Voids 3 1 - Exam General: The patient is awake and alert, in no distress Eye: there is normal conjunctiva bilaterally. Neck: The neck is supple, there is no JVD. Cardiovascular: Normal S1-S2, no S3-S4, no murmurs. Respiratory: Lungs clear to auscultation bilaterally Gastrointestinal: Abdomen is soft, nontender Musculoskeletal: There is no pedal edema. Neurological:. Speech is normal. Skin: Skin is warm and dry - Labs CBC & Chem 7: 10/26/20 06:04 10/26/20 06:04 Labs: Abnormal Lab Results - Last 24 Hours (Table) 10/25/20 10/26/20 10/26/20 Range/Units 06:33 06:04 06:04 Hgb 12.8 L (13.0-17.0) g/dL Hct 39.0 L (39.6-50.0) % Immature Gran # 0.06 H (0.00-0.04) X 10*3/uL Eosinophils # 0 L (0.04-0.35) X 10*3/uL D-Dimer (<0.60) mg/L FEU BUN/Creatinine Ratio 28.89 H (12.00-20.00) Ratio Glucose 136 H (70-110) mg/dL Calcium 8.4 L (8.7-10.3) mg/dL AST 39 H (14-35) U/L Alkaline Phosphatase 39 L (41-126) U/L Total Protein 5.6 L (6.2-8.2) g/dL Albumin 3.30 L (3.80-4.90) g/dL Albumin/Globulin Ratio 1.43 L (1.60-3.17) g/dL Procalcitonin 0.11 H (0.02-0.09) ng/mL 10/26/20 Range/Units 06:04 Hgb (13.0-17.0) g/dL Hct (39.6-50.0) % Immature Gran # (0.00-0.04) X 10*3/uL Eosinophils # (0.04-0.35) X 10*3/uL D-Dimer 0.81 H (<0.60) mg/L FEU BUN/Creatinine Ratio (12.00-20.00) Ratio Glucose (70-110) mg/dL Calcium (8.7-10.3) mg/dL AST (14-35) U/L Alkaline Phosphatase (41-126) U/L Total Protein (6.2-8.2) g/dL Albumin (3.80-4.90) g/dL Albumin/Globulin Ratio (1.60-3.17) g/dL Procalcitonin (0.02-0.09) ng/mL Microbiology - Last 24 Hours (Table) 10/22/20 16:30 Blood Culture - Preliminary Blood No Growth after 72 hours 10/22/20 16:30 Blood Culture - Preliminary Blood No Growth after 72 hours Assessment and Plan Assessment: This is a 50-year-old male with past medical history noted below who presented to the emergency room with worsening shortness of breath and malaise. Patient was evaluated in the ER and admitted to the hospital for further management of his medical problems noted below 1. COVID-19 pneumonia, started on Decadron 6 mg daily day #5. Seen and evaluated by pulmonology. started on Remidesivir day #3. Status post TOcilizumab x2 and convalescent plasma. Continue Vitamin C, vitamin D, zinc sulfate, and melatonin daily. We will continue to monitor inflammatory markers. CRP and pro-calcitonin only slightly elevated. 2. Acute hypoxic respiratory failure, currently on a nonrebreather. Continue to monitor closely. 3. Acute kidney injury, most likely secondary to dehydration. Resolved with IV fluids. 4. Essential hypertension: Blood pressure within acceptable range. Continue home medication 5. DVT prophylaxis with subcu Lovenox 6. CODE STATUS: Patient is full code per his wishes. Discussed with him and his nurse Erica at bedside Today, I reviewed his medication list and lab work results. Continue supportive care. Appreciate warehouse consultant's recommendations.
[2020-10-26 14:03] LABS: C Reactive Protein 3.9 mg/dL (0.0-0.8)
[2020-10-26] MEDS: REMDESIVIR 100 MG in SODIUM CHLORIDE 0.9% 250 ML IVPB SCH (14:23)
[2020-10-26] MEDS: SODIUM CHLORIDE 0.9% 1,000 ML IV SCH (17:04)
[2020-10-26] MEDS: MELATONIN 5 MG TABLET PO SCH (20:52)
[2020-10-26] MEDS: DOXAZOSIN 4 MG TAB PO SCH (20:53)
[2020-10-27] MEDS: ALBUTEROL HFA INHALER INHALATION SCH ×4 (07:20→18:57)
--- NOTE | 2020-10-27 07:43 | XR ---
EXAMINATION TYPE: XR chest 1V portable DATE OF EXAM: 10/27/2020 HISTORY: Shortness of breath. COMPARISON: 10/25/2020 TECHNIQUE: Single view of the chest is submitted. FINDINGS: Demonstrated are scattered senescent parenchymal change. Progressive diffuse airspace infiltrates throughout the right lung. Essentially stable left perihilar infiltrate. The heart is stable. Hilar and mediastinal structures are within normal limits. Degenerative changes are seen of the dorsal spine. IMPRESSION: 1. Progressive pneumonia.
[2020-10-27] MEDS: BENZONATATE 100 MG CAP PO PRN (08:41)
[2020-10-27] MEDS: amLODIPine 10 MG TAB PO SCH (08:41)
[2020-10-27] MEDS: HYDROcodone/APAP 10-325MG 1 EACH TAB PO PRN (08:41)
[2020-10-27] MEDS: atenoloL 25 MG TAB PO SCH ×2 (08:41→20:32)
[2020-10-27] MEDS: guaiFENesin 600 MG TABLET.ER PO SCH ×2 (08:41→20:32)
[2020-10-27] MEDS: DEXAMETHASONE SOD PHOSPHATE 10 MG/ML 1 ML VIAL IV SCH (08:42)
[2020-10-27] MEDS: MELOXICAM 7.5 MG TAB PO SCH (08:42)
[2020-10-27] MEDS: ASCORBIC ACID 500 MG TAB PO SCH (08:42)
[2020-10-27] MEDS: ZINC SULFATE 220 MG CAP PO SCH (08:42)
[2020-10-27] MEDS: CHOLECALCIFEROL 25 MCG (1000 IU) TABLET PO SCH (08:42)
[2020-10-27] MEDS: ENOXAPARIN 40 MG/0.4 ML SYRINGE SQ SCH (08:43)
[2020-10-27 09:08] LABS: African American GFR (CKD) 114.2 (60.0-200.0); Albumin 3.4 g/dL (3.80-4.90); Albumin/Globulin Ratio 1.42 (1.60-3.17); Anion Gap 7.7 mmol/L (4.00-12.00); BUN/Creat Ratio 28.89 Ratio (12.00-20.00); Calcium 8.4 mg/dL (8.7-10.3); Carbon Dioxide 28.3 mmol/L (21.6-31.8); Globulin 2.4 g/dL (1.6-3.3); Non-African American GFR(CKD) 98.5 (60.0-200.0); Potassium 4.4 mmol/L (3.5-5.5); Total Bilirubin 1.1 mg/dL (0.2-1.2); Total Protein 5.8 g/dL (6.2-8.2)
--- NOTE | 2020-10-27 11:43 | P.PN ---
Subjective Progress Note Date: 10/27/20 Patient is awake and alert today. He is still on 15 L high flow nasal cannula and nonrebreather on top. O2 sat 92% this morning. Patient was more confused this morning according to nursing staff. He appears appropriate to me. Chest x-ray showed progressive pneumonia. Objective - Vital Signs Vital signs: Vital Signs Temp 98.3 F 10/27/20 09:28 Pulse 80 10/27/20 09:28 Resp 24 10/27/20 09:28 BP 156/84 10/27/20 09:28 Pulse Ox 96 10/27/20 09:28 Intake & Output 10/26/20 10/27/20 10/27/20 18:59 06:59 18:59 Output Total 250 Balance -250 Output: Urine 250 Other: Voiding Method Urinal Urinal # Voids 3 1 # Bowel Movements 1 - Exam General: The patient is awake and alert, in no distress Eye: there is normal conjunctiva bilaterally. Neck: The neck is supple, there is no JVD. Cardiovascular: Normal S1-S2, no S3-S4, no murmurs. Respiratory: Lungs clear to auscultation bilaterally Gastrointestinal: Abdomen is soft, nontender Musculoskeletal: There is no pedal edema. Neurological:. Speech is normal. Skin: Skin is warm and dry - Labs CBC & Chem 7: 10/26/20 06:04 10/27/20 07:05 Labs: Abnormal Lab Results - Last 24 Hours (Table) 10/26/20 10/27/20 Range/Units 06:04 07:05 BUN/Creatinine Ratio 28.89 H (12.00-20.00) Ratio Glucose 121 H (70-110) mg/dL Calcium 8.4 L (8.7-10.3) mg/dL AST 47 H (14-35) U/L ALT 51 H (10-49) U/L Lactate Dehydrogenase 422 H (120-246) U/L C-Reactive Protein 3.9 H (0.0-0.8) mg/dL Total Protein 5.8 L (6.2-8.2) g/dL Albumin 3.40 L (3.80-4.90) g/dL Albumin/Globulin Ratio 1.42 L (1.60-3.17) g/dL Microbiology - Last 24 Hours (Table) 10/22/20 16:30 Blood Culture - Preliminary Blood No Growth after 96 hours 10/22/20 16:30 Blood Culture - Preliminary Blood No Growth after 96 hours Assessment and Plan Assessment: This is a 50-year-old male with past medical history noted below who presented to the emergency room with worsening shortness of breath and malaise. Patient was evaluated in the ER and admitted to the hospital for further management of his medical problems noted below 1. COVID-19 pneumonia, started on Decadron 6 mg daily day #6. Seen and evaluated by pulmonology. started on Remidesivir day #4. Status post Tociliz umab x2 and convalescent plasma. Continue Vitamin C, vitamin D, zinc sulfate, and melatonin daily. We will continue to monitor inflammatory markers. CRP and pro-calcitonin only slightly elevated. 2. Acute hypoxic respiratory failure, currently on a nonrebreather. Continue to monitor closely. 3. Acute kidney injury, most likely secondary to dehydration. Resolved with IV fluids. 4. Essential hypertension: Blood pressure within acceptable range. Continue home medication 5. DVT prophylaxis with subcu Lovenox 6. CODE STATUS: Patient is full code per his wishes. Discussed with him and his nurse Erica at bedside Today, I reviewed his medication list and lab work results. Continue supportive care. Appreciate senior science consultant's recommendations.
[2020-10-27] MEDS: REMDESIVIR 100 MG in SODIUM CHLORIDE 0.9% 250 ML IVPB SCH (12:07)
--- NOTE | 2020-10-27 12:33 | P.PN ---
Subjective Progress Note Date: 10/27/20 70-year-old male patient who was hospitalized for COVID 19 related pneumonia 10/26/2020, the patient's oxygenation obviously has gotten worse and the patient is on 15 L high flow and occasionally is using the 100% nonrebreather facemask. His current pulse ox is running in the order of 92-93%. The patient's blood work from today is showing a d-dimer of 0.8, his LDH from yesterday was 467 and his CRP from yesterday was 4.1. The patient is afebrile. He is currently receiving treatment with IV Decadron. He is also on REM day number 4 . He also received Tocilizumab and this was given to him yesterday because of worsening his oxygenation. He was also given, less than plasma time of admission, one unit. On today's evaluation of the 2020, the patient's oxygenation has been improving and the patient is currently on a partial nonrebreather with 15 L high flow oxygen. His pulse ox is currently 96%. He is afebrile. Hemodynamically stable. He remains on Decadron. He is also on day #5 of REM. He also received Tocilizumab the units of plasma. Things are going to his advantage and the patient is feeling better sitting up on a chair having his diet. No other significant events over the past 24 hours. In terms of his labs and markers, his LDH level is pending, CRP is pending, electrolyte and renal function are all stable and within normal limits, CBC was also within normal limits. Objective - Vital Signs Vital signs: Vital Signs Temp 98.3 F 10/27/20 09:28 Pulse 80 10/27/20 09:28 Resp 24 10/27/20 09:28 BP 156/84 10/27/20 09:28 Pulse Ox 96 10/27/20 09:28 Intake & Output 10/26/20 10/27/20 10/27/20 18:59 06:59 18:59 Output Total 250 Balance -250 Output: Urine 250 Other: Voiding Method Urinal Urinal # Voids 3 1 # Bowel Movements 1 - Exam The patient appeared well nourished and normally developed him a currently on 15 L partial nonrebreather facemask. Clinically is feeling better. Less short of breath.. Vital signs as documented. Head exam is unremarkable. No scleral icterus or corneal arcus noted. Neck is without jugular venous distension, thyromegaly, or carotid bruits. Carotid upstrokes are brisk bilaterally. Lungs are showing crackles in lung bases bilaterally. Cardiac exam reveals the PMI to be normally sized and situated. Rhythm is regular. First and second heart sounds normal. No murmurs, rubs or gallops. Abdominal exam reveals normal bowel sounds, no masses, no organomegaly and no aortic enlargement. Extremities are nonedematous and both femoral and pedal pulses are normal.Examination of the skin revealed no evidence of significant rashes, suspicious appearing nevi or other concerning lesions.Neurologically, the patient is awake and alert and the patient does not have any focal neurological deficit. Cranial nerves are essentially int - Labs CBC & Chem 7: 10/26/20 06:04 10/27/20 07:05 Labs: Abnormal Lab Results - Last 24 Hours (Table) 10/26/20 10/27/20 Range/Units 06:04 07:05 BUN/Creatinine Ratio 28.89 H (12.00-20.00) Ratio Glucose 121 H (70-110) mg/dL Calcium 8.4 L (8.7-10.3) mg/dL AST 47 H (14-35) U/L ALT 51 H (10-49) U/L Lactate Dehydrogenase 422 H (120-246) U/L C-Reactive Protein 3.9 H (0.0-0.8) mg/dL Total Protein 5.8 L (6.2-8.2) g/dL Albumin 3.40 L (3.80-4.90) g/dL Albumin/Globulin Ratio 1.42 L (1.60-3.17) g/dL Microbiology - Last 24 Hours (Table) 10/22/20 16:30 Blood Culture - Preliminary Blood No Growth after 96 hours 10/22/20 16:30 Blood Culture - Preliminary Blood No Growth after 96 hours Assessment and Plan Plan: 1 acute Covid likely related pneumonia, in addition to constitutions symptoms, elevated inflammatory markers and hypoxemia. The patient was tested positive on 10/22/2020 admit express. He was having symptoms approximately less than a week prior to his diagnosis, probably the symptoms started on the 2020. Patient currently is on Decadron and the patient is also on REM the #5 and he'll be receiving a unit of convalescent plasma,, He also received Tocilizumab 400 mg, 2 on today's evaluation of the 2020, the patient clinically is feeling better. Is feeling less short of breath. He was weaned down from 100% nonrebreather into a 15 L partial nonrebreather 2 acute hypoxic respiratory failure secondary to above currently on 15 L of partial nonrebreather 3 shortness of breath secondary to above 4 acute kidney injury, improved with fluid resuscitation, recovered 5 obesity with BMI of 39.6 6 hypertension Plan Titrate FiO2 to maintain a saturation above 90%, , currently on oxygen at 15 L partial nonrebreather IV fluids [email or web address] Continue steroids and I'm going to switch this patient to IV Solu-Medrol 60 mg every 6 hours Remdesivir protocol and the patient is currently on day 5 convalescent plasma and the patient will be receiving 1 unit Tocilizumab 400 iv x2 given Lovenox 40 mg subcu poorly the prophylaxis Routine and multivitamins Ordered a chest x-ray tomorrow with some progressive bilateral pulmonary infiltrates consistent with Covid 90 related pneumonia. Despite this progression, clinically the patient is feeling better. We'll continue to follow. We'll continue to follow
[2020-10-27] MEDS: methylPREDNISolone SOD SUCCI 125 MG/2 ML VIAL IV SCH (16:26)
[2020-10-27] MEDS: SODIUM CHLORIDE 0.9% 1,000 ML IV SCH (16:27)
[2020-10-27] MEDS: DOXAZOSIN 4 MG TAB PO SCH (20:32)
[2020-10-27] MEDS: MELATONIN 5 MG TABLET PO SCH (23:57)
[2020-10-28] MEDS: methylPREDNISolone SOD SUCCI 125 MG/2 ML VIAL IV SCH ×4 (00:04→17:19)
--- NOTE | 2020-10-28 08:32 | XR ---
EXAMINATION TYPE: XR chest 1V portable DATE OF EXAM: 10/28/2020 Comparison: 10/27/2020 Clinical History: 50-year-old male evaluate covid pneumonia Findings: Heart is upper limits of normal in size. Patchy and confluent bilateral airspace opacities show signi ficant interval improvement. Residual opacities remain. Impression: Residual patchy bilateral airspace disease though with significant improvement from prior exam.
[2020-10-28] MEDS: ALBUTEROL HFA INHALER INHALATION SCH ×4 (08:46→19:28)
[2020-10-28 08:48] LABS: Basophils # (A) 0.03 X 10*3/uL (0.00-0.10); Basophils % (A) 0.4 %; Eosinophils # (A) 0 X 10*3/uL (0.04-0.35); Eosinophils % (A) 0 %; HCT 40.8 % (39.6-50.0); HGB 13.9 g/dL (13.0-17.0); Lymphocytes # (A) 0.92 X 10*3/uL (0.90-5.00); Lymphocytes % (A) 13.6 %; MCH 29.1 pg (27.0-32.0); MCHC 34.1 g/dL (32.0-37.0); MCV 85.5 fL (80.0-97.0); Mean Platelet Volume 9.4 fL (9.5-12.2); Monocytes # (A) 0.28 X 10*3/uL (0.20-1.00); Monocytes % (A) 4.1 %; Neutrophils # (A) 5.37 X 10*3/uL (1.80-7.70); Neutrophils % (A) 79.5 %; Platelet Count 323 X 10*3/uL (140-440); RBC 4.77 X 10*6/uL (4.40-5.60); RDW 12.4 % (11.5-14.5); WBC 6.76 X 10*3/uL (4.50-10.00)
[2020-10-28] MEDS: ASCORBIC ACID 500 MG TAB PO SCH (08:56)
[2020-10-28] MEDS: MELOXICAM 7.5 MG TAB PO SCH (08:56)
[2020-10-28] MEDS: CHOLECALCIFEROL 25 MCG (1000 IU) TABLET PO SCH (08:56)
[2020-10-28] MEDS: ZINC SULFATE 220 MG CAP PO SCH (08:57)
[2020-10-28] MEDS: amLODIPine 10 MG TAB PO SCH (08:57)
[2020-10-28] MEDS: guaiFENesin 600 MG TABLET.ER PO SCH ×2 (08:57→20:47)
[2020-10-28] MEDS: SODIUM CHLORIDE 0.9% 1,000 ML IV SCH (08:59)
[2020-10-28] MEDS: ENOXAPARIN 40 MG/0.4 ML SYRINGE SQ SCH (08:59)
[2020-10-28] MEDS: atenoloL 25 MG TAB PO SCH ×2 (08:59→20:48)
[2020-10-28 12:57] LABS: C Reactive Protein 0.9 mg/dL (0.0-0.8)
--- NOTE | 2020-10-28 13:40 | P.PN ---
Subjective Progress Note Date: 10/28/20 Patient is feeling well today. He is currently on 15 L of oxygen via high flow nasal cannula. Yesterday required same amount of oxygen but with a nonrebreather on top. His O2 sat this morning was 92%. Patient reports feeling better. Chest x-ray showed improved aeration. Objective - Vital Signs Vital signs: Vital Signs Temp 97.9 F 10/28/20 13:30 Pulse 71 10/28/20 13:30 Resp 16 10/28/20 13:30 BP 147/85 10/28/20 13:30 Pulse Ox 93 L 10/28/20 13:30 Intake & Output 10/27/20 10/28/20 10/28/20 18:59 06:59 18:59 Output Total 400 Balance -400 Output: Urine 400 Other: Voiding Method Urinal Urinal Urinal # Voids 3 3 1 # Bowel Movements 1 - Exam General: The patient is awake and alert, in no distress Eye: there is normal conjunctiva bilaterally. Neck: The neck is supple, there is no JVD. Cardiovascular: Normal S1-S2, no S3-S4, no murmurs. Respiratory: Lungs clear to auscultation bilaterally Gastrointestinal: Abdomen is soft, nontender Musculoskeletal: There is no pedal edema. Neurological:. Speech is normal. Skin: Skin is warm and dry - Labs CBC & Chem 7: 10/28/20 06:33 10/27/20 07:05 Labs: Abnormal Lab Results - Last 24 Hours (Table) 10/28/20 10/28/20 10/28/20 Range/Units 06:33 06:33 06:33 MPV 9.4 L (9.5-12.2) fL Immature Gran # 0.16 H (0.00-0.04) X 10*3/uL Eosinophils # 0 L (0.04-0.35) X 10*3/uL D-Dimer 1.60 H (<0.60) mg/L FEU Lactate Dehydrogenase 439 H (120-246) U/L C-Reactive Protein 0.9 H (0.0-0.8) mg/dL Microbiology - Last 24 Hours (Table) 10/22/20 16:30 Blood Culture - Preliminary Blood No Growth after 120 hours 10/22/20 16:30 Blood Culture - Preliminary Blood No Growth after 120 hours Assessment and Plan Assessment: This is a 50-year-old male with past medical history noted below who presented to the emergency room with worsening shortness of breath and malaise. Patient was evaluated in the ER and admitted to the hospital for further management of his medical problems noted below 1. COVID-19 pneumonia, started on Decadron 6 mg daily day #7. Seen and evaluated by pulmonology. Today will complete course of Remidesivir. Status post Tocilizumab x2 and convalescent plasma. Continue Vitamin C, vitamin D, zinc sulfate, and melatonin daily. We will continue to monitor inflammatory markers. CRP and pro-calcitonin only slightly elevated. 2. Acute hypoxic respiratory failure, currently on 15 L high flow nasal cannula . Continue to monitor closely. 3. Acute kidney injury, most likely secondary to dehydration. Resolved with IV fluids. 4. Essential hypertension: Blood pressure within acceptable range. Continue home medication 5. DVT prophylaxis with subcu Lovenox 6. CODE STATUS: Patient is full code per his wishes. Discussed with him and his nurse Erica at bedside Today, I reviewed his medication list and lab work results. Continue supportive care. Appreciate portfolio consultant's recommendations.
--- NOTE | 2020-10-28 17:12 | P.PN ---
Subjective Progress Note Date: 10/28/20 Principal diagnosis: CoVID 19 pneumonia 10/26/2020, the patient's oxygenation obviously has gotten worse and the patient is on 15 L high flow and occasionally is using the 100% nonrebreather facemask. His current pulse ox is running in the order of 92-93%. The patient's blood work from today is showing a d-dimer of 0.8, his LDH from yesterday was 467 and his CRP from yesterday was 4.1. The patient is afebrile. He is currently receiving treatment with IV Decadron. He is also on REM day number 4 . He also received Tocilizumab and this was given to him yesterday because of worsening his oxygenation. He was also given, less than plasma time of admission, one unit. On today's evaluation of the 2020, the patient's oxygenation has been improving and the patient is currently on a partial nonrebreather with 15 L high flow oxygen. His pulse ox is currently 96%. He is afebrile. Hemodynamically stable. He remains on Decadron. He is also on day #5 of REM. He also received Tocilizumab the units of plasma. Things are going to his advantage and the patient is feeling better sitting up on a chair having his diet. No other significant events over the past 24 hours. In terms of his labs and markers, his LDH level is pending, CRP is pending, electrolyte and renal function are all stable and within normal limits, CBC was also within normal limits. The patient is seen today 10/28/2020 in follow-up on the regular medical floor. He was originally admitted on 10/22/2020 for CoVID 19 pneumonia. He has completed his course of Remdesivir. He is still on 15 L high flow nasal cannula. He was 83% O2 saturation on room air. Less cough and congestion. He remains on IV Solu-Medrol. Lovenox. Vitamin supplements. His chest x-ray today reveals residual patchy bilateral airspace disease with significant improvement compared to previous. White count 6.7. Hemoglobin 13.9. Lymphocytes 0.92. D-dimer 1.60. LDH 439. C-reactive protein 0.9. Objective - Vital Signs Vital signs: Vital Signs Temp 97.9 F 03/29/21 13:30 Pulse 71 10/28/20 13:30 Resp 16 10/28/20 13:30 BP 147/85 10/28/20 13:30 Pulse Ox 93 L 10/28/20 13:30 Intake & Output 10/27/20 10/28/20 10/28/20 18:59 06:59 18:59 Output Total 400 Balance -400 Output: Urine 400 Other: Voiding Method Urinal Urinal Urinal # Voids 3 3 1 # Bowel Movements 1 - Exam 50-year-old male patient, appears well nourished and normally developed him a currently on 15 L high flow nasal cannula. Clinically is feeling better. Less short of breath.. Vital signs as documented. Head exam is unremarkable. No scleral icterus or corneal arcus noted. Neck is without jugular venous distension, thyromegaly, or carotid bruits. Carotid upstrokes are brisk bilaterally. Lungs are showing crackles in lung bases bilaterally. Cardiac exam reveals the PMI to be normally sized and situated. Rhythm is regular. First and second heart sounds normal. No murmurs, rubs or gallops. Abdominal exam reveals normal bowel sounds, no masses, no organomegaly and no aortic enlargement. Extremities are nonedematous and both femoral and pedal pulses are normal.Examination of the skin revealed no evidence of significant rashes, suspicious appearing nevi or other concerning lesions.Neurologically, the patient is awake and alert and the patient does not have any focal neurological deficit. Cranial nerves are essentially intact - Labs CBC & Chem 7: 10/28/20 06:33 10/27/20 07:05 Labs: Abnormal Lab Results - Last 24 Hours (Table) 10/28/20 10/28/20 10/28/20 Range/Units 06:33 06:33 06:33 MPV 9.4 L (9.5-12.2) fL Immature Gran # 0.16 H (0.00-0.04) X 10*3/uL Eosinophils # 0 L (0.04-0.35) X 10*3/uL D-Dimer 1.60 H (<0.60) mg/L FEU Lactate Dehydrogenase 439 H (120-246) U/L C-Reactive Protein 0.9 H (0.0-0.8) mg/dL Microbiology - Last 24 Hours (Table) 03/23/21 16:30 Blood Culture - Preliminary Blood No Growth after 120 hours 10/22/20 16:30 Blood Culture - Preliminary Blood No Growth after 120 hours Assessment and Plan Assessment: 1 acute Covid 19 related pneumonia, in addition to constitutions symptoms, elevated inflammatory markers and hypoxemia. The patient was tested positive on 10/22/2020 at [facility] He was having symptoms approximately less than a week prior to his diagnosis, probably the symptoms started on the 2020. Patient currently is on Decadron and the patient completed Remdesivir and received a unit of convalescent plasma, He also received Tocilizumab 400 mg, 2. 2 acute hypoxic respiratory failure secondary to above currently on 15 L high flow nasal cannula 3 shortness of breath secondary to above, improving 4 acute kidney injury, improved with fluid resuscitation, recovered 5 obesity with BMI of 39.6 6 hypertension Plan The patient was seen and evaluated by Dr. Torrez He is improving from the pulmonary standpoint Continue Solu-Medrol, Lovenox, vitamin supplements Completed Remdesivir, received convalescent plasma and Tocilizumab Titrate down the FiO2 as tolerated We'll continue to follow I, the cosigning physician, performed a history & physical examination of the patient. Lungs sounds with crackles in the bilateral posterior bases. Maintaining good O2 saturations in the 90s on 15 L high flow nasal cannula. I discussed the assessment and plan of care with my nurse practitioner, Porsche Duff. I attest to the above note as dictated by her.
[2020-10-28] MEDS: DOXAZOSIN 4 MG TAB PO SCH (20:47)
[2020-10-28] MEDS: MELATONIN 5 MG TABLET PO SCH (20:48)
[2020-10-29] MEDS: methylPREDNISolone SOD SUCCI 125 MG/2 ML VIAL IV SCH ×5 (00:19→23:27)
[2020-10-29] MEDS: ALBUTEROL HFA INHALER INHALATION SCH ×4 (08:30→19:35)
[2020-10-29] MEDS: ASCORBIC ACID 500 MG TAB PO SCH (09:39)
[2020-10-29] MEDS: atenoloL 25 MG TAB PO SCH ×2 (09:40→20:26)
[2020-10-29] MEDS: guaiFENesin 600 MG TABLET.ER PO SCH ×2 (09:40→20:25)
[2020-10-29] MEDS: ZINC SULFATE 220 MG CAP PO SCH (09:40)
[2020-10-29] MEDS: MELOXICAM 7.5 MG TAB PO SCH (09:40)
[2020-10-29] MEDS: ENOXAPARIN 40 MG/0.4 ML SYRINGE SQ SCH (09:40)
[2020-10-29] MEDS: amLODIPine 10 MG TAB PO SCH (09:40)
[2020-10-29] MEDS: CHOLECALCIFEROL 25 MCG (1000 IU) TABLET PO SCH (09:59)
[2020-10-29] MEDS: SODIUM CHLORIDE 0.9% 1,000 ML IV SCH (12:18)
--- NOTE | 2020-10-29 13:49 | P.PN ---
Subjective Progress Note Date: 10/29/20 Patient is doing better today. His oxygen requirements improved and he is currently on 8 L of oxygen compared to 15 yesterday. Patient himself denies any shortness of breath. Objective - Vital Signs Vital signs: Vital Signs Temp 98.1 F 10/29/20 10:00 Pulse 72 10/29/20 10:00 Resp 18 10/29/20 10:00 BP 125/77 10/29/20 10:00 Pulse Ox 94 L 10/29/20 10:00 Intake & Output 10/28/20 10/29/20 10/29/20 18:59 06:59 18:59 Intake Total 100 Output Total 400 750 Balance -400 -650 Intake: Oral 100 Output: Urine 400 750 Other: Voiding Method Urinal Urinal Urinal # Voids 1 1 - Exam General: The patient is awake and alert, in no distress Eye: there is normal conjunctiva bilaterally. Neck: The neck is supple, there is no JVD. Cardiovascular: Normal S1-S2, no S3-S4, no murmurs. Respiratory: Lungs clear to auscultation bilaterally Gastrointestinal: Abdomen is soft, nontender Musculoskeletal: There is no pedal edema. Neurological:. Speech is normal. Skin: Skin is warm and dry - Labs CBC & Chem 7: 10/28/20 06:33 10/27/20 07:05 Labs: Microbiology - Last 24 Hours (Table) 10/22/20 16:30 Blood Culture - Final Blood No Growth after 144 hours 10/22/20 16:30 Blood Culture - Final Blood No Growth after 144 hours Assessment and Plan Assessment: This is a 50-year-old male with past medical history noted below who presented to the emergency room with worsening shortness of breath and malaise. Patient was evaluated in the ER and admitted to the hospital for further management of his medical problems noted below 1. COVID-19 pneumonia, started on Decadron 6 mg daily day #8. Seen and evaluated by pulmonology. completed course of Remidesivir. Status post Sohail ilizumab x2 and convalescent plasma. Continue Vitamin C, vitamin D, zinc sulfate, and melatonin daily. We will continue to monitor inflammatory markers. CRP and pro-calcitonin only slightly elevated. 2. Acute hypoxic respiratory failure, currently on 8 L high flow nasal cannula. Showing gradual improvement patient was on 15 L yesterday. Continue to monitor closely and wean off O2 as tolerated. 3. Acute kidney injury, most likely secondary to dehydration. Resolved with IV fluids. 4. Essential hypertension: Blood pressure within acceptable range. Continue home medication 5. DVT prophylaxis with subcu Lovenox 6. CODE STATUS: Patient is full code per his wishes. Today, I reviewed his medication list and lab work results. Continue supportive care. Appreciate enrollment consultant's recommendations.
--- NOTE | 2020-10-29 17:50 | P.PN ---
Subjective Progress Note Date: 10/29/20 Principal diagnosis: CoVID 19 pneumonia 10/26/2020, the patient's oxygenation obviously has gotten worse and the patient is on 15 L high flow and occasionally is using the 100% nonrebreather facemask. His current pulse ox is running in the order of 92-93%. The patient's blood work from today is showing a d-dimer of 0.8, his LDH from yesterday was 467 and his CRP from yesterday was 4.1. The patient is afebrile. He is currently receiving treatment with IV Decadron. He is also on REM day number 4 . He also received Tocilizumab and this was given to him yesterday because of worsening his oxygenation. He was also given, less than plasma time of admission, one unit. On today's evaluation of the 2020, the patient's oxygenation has been improving and the patient is currently on a partial nonrebreather with 15 L high flow oxygen. His pulse ox is currently 96%. He is afebrile. Hemodynamically stable. He remains on Decadron. He is also on day #5 of REM. He also received Tocilizumab the units of plasma. Things are going to his advantage and the patient is feeling better sitting up on a chair having his diet. No other significant events over the past 24 hours. In terms of his labs and markers, his LDH level is pending, CRP is pending, electrolyte and renal function are all stable and within normal limits, CBC was also within normal limits. The patient is seen today 10/28/2020 in follow-up on the regular medical floor. He was originally admitted on 10/22/2020 for CoVID 19 pneumonia. He has completed his course of Remdesivir. He is still on 15 L high flow nasal cannula. He was 83% O2 saturation on room air. Less cough and congestion. He remains on IV Solu-Medrol. Lovenox. Vitamin supplements. His chest x-ray today reveals residual patchy bilateral airspace disease with significant improvement compared to previous. White count 6.7. Hemoglobin 13.9. Lymphocytes 0.92. D-dimer 1.60. LDH 439. C-reactive protein 0.9. The patient is seen today 10/29/2020 follow-up on the regular medical floor. He is currently resting comfortably in bed. Awake and alert in no acute distress. He is completing his course of Remdesivir. Received 1 dose of convalescent plasma. He is currently on 8 L high flow nasal cannula to maintain O2 s aturations in the mid 90s. He's been afebrile. He remains on IV Solu-Medrol, Lovenox, vitamin supplements. Objective - Vital Signs Vital signs: Vital Signs Temp 97.6 F 10/29/20 14:00 Pulse 89 10/29/20 14:00 Resp 16 10/29/20 14:00 BP 121/72 10/29/20 14:00 Pulse Ox 95 10/29/20 15:14 Intake & Output 10/28/20 10/29/20 10/29/20 18:59 06:59 18:59 Intake Total 100 Output Total 400 750 Balance -400 -650 Intake: Oral 100 Output: Urine 400 750 Other: Voiding Method Urinal Urinal Urinal # Voids 1 1 1 - Exam 50-year-old male patient, appears well nourished and normally developed him a currently on 8 L high flow nasal cannula. Clinically is feeling better. Less short of breath.. Vital signs as documented. Head exam is unremarkable. No scleral icterus or corneal arcus noted. Neck is without jugular venous distension, thyromegaly, or carotid bruits. Carotid upstrokes are brisk bilaterally. Lungs are showing crackles in lung bases bilaterally. Cardiac exam reveals the PMI to be normally sized and situated. Rhythm is regular. First and second heart sounds normal. No murmurs, rubs or gallops. Abdominal exam reveals normal bowel sounds, no masses, no organomegaly and no aortic enlargement. Extremities are nonedematous and both femoral and pedal pulses are normal.Examination of the skin revealed no evidence of significant rashes, suspicious appearing nevi or other concerning lesions.Neurologically, the patient is awake and alert and the patient does not have any focal neurological deficit. Cranial nerves are essentially intact - Labs CBC & Chem 7: 10/28/20 06:33 10/27/20 07:05 Labs: Microbiology - Last 24 Hours (Table) 10/22/20 16:30 Blood Culture - Final Blood No Growth after 144 hours 10/22/20 16:30 Blood Culture - Final Blood No Growth after 144 hours Assessment and Plan Assessment: 1 acute Covid 19 related pneumonia, in addition to constitutions symptoms, elevated inflammatory markers and hypoxemia. The patient was tested positive on 10/22/2020 at [facility]. He was having symptoms approximately less than a week prior to his diagnosis, probably the symptoms started on the 2020. Patient currently is on Decadron and the patient completed Remdesivir and received a unit of convalescent plasma, received Tocilizumab 400 mg, 2. 2 acute hypoxic respiratory failure secondary to above currently on 8 L high flow nasal cannula 3 shortness of breath secondary to above, improving 4 acute kidney injury, improved with fluid resuscitation, recovered 5 obesity with BMI of 39.6 6 hypertension Plan The patient was seen and evaluated by Dr. Torrez He is improving from the pulmonary standpoint Continue Solu-Medrol, Lovenox, vitamin supplements Completed Remdesivir, received convalescent plasma and Tocilizumab Titrate down the FiO2 as tolerated Probable discharge in the a.m. Titrate down the FiO2 as tolerated May need home oxygen We'll continue to follow I, the cosigning physician, performed a history & physical examination of the patient. Lungs sounds with crackles in the bilateral posterior bases. Maintaining good O2 saturations in the 90s on 8 L high flow nasal cannula. I discussed the assessment and plan of care with my nurse practitioner, Porsche Duff. I attest to the above note as dictated by her.
[2020-10-29] MEDS: DOXAZOSIN 4 MG TAB PO SCH (20:25)
[2020-10-29] MEDS: MELATONIN 5 MG TABLET PO SCH (20:26)
[2020-10-29] MEDS: HYDROcodone/APAP 10-325MG 1 EACH TAB PO PRN (20:31)
[2020-10-30] MEDS: methylPREDNISolone SOD SUCCI 125 MG/2 ML VIAL IV SCH ×2 (05:09→12:28)
[2020-10-30] MEDS: ALBUTEROL HFA INHALER INHALATION SCH ×2 (07:36→11:14)
[2020-10-30] MEDS: CHOLECALCIFEROL 25 MCG (1000 IU) TABLET PO SCH (07:57)
[2020-10-30] MEDS: atenoloL 25 MG TAB PO SCH (07:57)
[2020-10-30] MEDS: amLODIPine 10 MG TAB PO SCH (07:57)
[2020-10-30] MEDS: guaiFENesin 600 MG TABLET.ER PO SCH (07:57)
[2020-10-30] MEDS: MELOXICAM 7.5 MG TAB PO SCH (07:57)
[2020-10-30] MEDS: ASCORBIC ACID 500 MG TAB PO SCH (07:57)
[2020-10-30] MEDS: ZINC SULFATE 220 MG CAP PO SCH (07:58)
[2020-10-30] MEDS: ENOXAPARIN 40 MG/0.4 ML SYRINGE SQ SCH (07:58)
[2020-10-30 09:14] LABS: Basophils # (A) 0.02 X 10*3/uL (0.00-0.10); Basophils % (A) 0.2 %; Eosinophils # (A) 0 X 10*3/uL (0.04-0.35); Eosinophils % (A) 0 %; HCT 42.9 % (39.6-50.0); HGB 14.6 g/dL (13.0-17.0); Lymphocytes # (A) 1.19 X 10*3/uL (0.90-5.00); Lymphocytes % (A) 12.2 %; MCH 29.3 pg (27.0-32.0); MCV 86.1 fL (80.0-97.0); Mean Platelet Volume 9.3 fL (9.5-12.2); Monocytes # (A) 0.58 X 10*3/uL (0.20-1.00); Monocytes % (A) 5.9 %; Neutrophils # (A) 7.56 X 10*3/uL (1.80-7.70); Neutrophils % (A) 77.3 %; Platelet Count 310 X 10*3/uL (140-440); RBC 4.98 X 10*6/uL (4.40-5.60); RDW 12.5 % (11.5-14.5); WBC 9.78 X 10*3/uL (4.50-10.00)
[2020-10-30 10:02] VITALS: BP 130/89; PULSE 68; RESP 18; TEMP 97.6
[2020-10-30 12:09] LABS: LDH 381 U/L (120-246)
--- NOTE | 2020-10-30 16:21 | P.DS ---
Providers Date of admission: 10/22/20 17:47 Expected date of discharge: 10/30/20 Attending physician: Toni Hobson Consults: 10/23/20 01:01 Consult Physician Routine Consulting Provider: Yeison Sawyer Consult Reason/Comments: covid Do you want consulting provider notified?: Yes, Notify in am Primary care physician: [facility] Hospital Course: Discharge Diagnosis: COVID 19 pneumonitis Acute hypoxic respiratory failure, resolved Acute kidney injury secondary to dehydration Morbid obesity with BMI 39.6 Hypertension Hospital Course: Patient is a 50-year-old male with a history of high blood pressure, chronic back pain, and obesity who presented to the ER with complaints of cough shortness of breath, loss of taste, and fatigue. In the ER he underwent an extensive evaluation. He was initially seen at [facility] and was found to be 85% on room air. On arrival here he was 91% on room air, temperature 100.5, and pulse 109. Labs demonstrated creatinine 1.56, LDH 822, C-reactive protein 40.4, pro calcitonin 0.15, d-dimer was normal. Chest x-ray showed mild to moderate infiltrates. Covid test came back positive. He was started on Decadron and IV fluids. Pulmonary was consulted. During his hospital course he received convalescent plasma on 10/24. And 2 doses of Actemra on 09/27. He also was started on severe on 10/23 and completed his therapy on 10/27. He was able to be weaned down to room air by the morning of 10/30. On ambulation his room air pulse ox was 90%. He was determined stable for discharge home. He will complete 5 more days of dexamethasone. He'll follow-up with his primary care physician through the [facility] clinic in 1-2 days. I have also recommended that he continues with Mucinex, Tessalon Perles, and vitamin D supplementation. Patient seen and examined at bedside. He is feeling fine. He wants to go home. He does not want his home O2 evaluation and is upset. He states his breathing is fine and of course he does not have any abdominal discomfort. Vital signs reviewed and stable. General: non toxic, no distress, appears at stated age, obese Derm: warm, dry Head: atraumatic, normocephalic, symmetric Eyes: EOMI, no lid lag, anicteric sclera Mouth: no lip lesion, mucus membranes moist Cardiovascular: S1S2 reg, no murmur, positive posterior tibial pulse bilateral, Lungs: Decreased breath sounds bilateral likely secondary to body habitus, no rhonchi, no rales , no accessory muscle use Abdominal: soft, nontender to palpation, no guarding, no appreciable organomegaly Ext: no gross muscle atrophy, no edema, no contractures Neuro: CN II-XI grossly intact, no focal neuro deficits Psych: Alert, oriented, angry A total of 39 minutes of time were spent preparing this complex discharge summary . Patient Condition at Discharge: Stable Plan - Discharge Summary Discharge Rx Participant: No New Discharge Prescriptions: New Albuterol Inhaler [Ventolin Hfa Inhaler] 2 puff INHALATION RT-QID puff guaiFENesin [Mucinex] 1,200 mg PO Q12HR #30 tablet.er Benzonatate [Tessalon Perles] 100 mg PO TID PRN #30 cap PRN Reason: Cough Cholecalciferol [Vitamin D3 (25 Mcg = 1000 Iu)] 50 mcg PO DAILY #60 tablet Dexamethasone 6 mg PO DAILY #15 tablet Continue Prazosin HCl 4 mg PO HS HYDROcodone/APAP 10-325MG [Wind[place] 10-325] 2 tab PO Q8H PRN PRN Reason: Pain Cyclobenzaprine [Flexeril] 10 mg PO HS PRN PRN Reason: Muscle Spasm atenoloL [Atenolol] 25 mg PO BID Meloxicam [Mobic] 7.5 mg PO DAILY amLODIPine [Norvasc] 10 mg PO DAILY traZODone HCL 150 mg PO HS PRN PRN Reason: Insomnia Discharge Medication List Cyclobenzaprine [Flexeril] 10 mg PO HS PRN 10/22/20 [History] HYDROcodone/APAP 10-325MG [Wind[place] 10-325] 2 tab PO Q8H PRN 10/22/20 [History] Meloxicam [Mobic] 7.5 mg PO DAILY 10/22/20 [History] Prazosin HCl 4 mg PO HS 10/22/20 [History] amLODIPine [Norvasc] 10 mg PO DAILY 10/22/20 [History] atenoloL [Atenolol] 25 mg PO BID 10/22/20 [History] traZODone HCL 150 mg PO HS PRN 10/22/20 [History] Albuterol Inhaler [Ventolin Hfa Inhaler] 2 puff INHALATION RT-QID puff 10/30/20 [Rx] Benzonatate [Tessalon Perles] 100 mg PO TID PRN #30 cap 10/30/20 [Rx] Cholecalciferol [Vitamin D3 (25 Mcg = 1000 Iu)] 50 mcg PO DAILY #60 tablet 10/30/20 [Rx] Dexamethasone 6 mg PO DAILY #15 tablet 10/30/20 [Rx] guaiFENesin [Mucinex] 1,200 mg PO Q12HR #30 tablet.er 10/30/20 [Rx] Follow up Appointment(s)/Referral(s): [facility],Clinic [Primary Care Provider] - 1-2 days Patient Instructions/Handouts: Coronavirus Disease 2019 (COVID-19) Activity/Diet/Wound Care/Special Instructions: Activity: as tolerated Diet: regular Discharge Disposition: HOME SELF-CARE
[2020-10-30 19:24] LABS: C Reactive Protein <0.4 mg/dL (0.0-0.8)
== END 2020-10-30 13:28 | disposition home or self-care (01) | DRG 177 ==
LOC: EC 15:35 → 4SSUR 17:47
PROVIDERS: ADMIT Internal Medicine; ATTEND Internal Medicine
PROC: XW13325 Transfusion of Convalescent Plasma (Nonautologous) into Peripheral Vein, Percutaneous Approach, New Technology Group 5 (ICD-10-PCS; principal; 2020-10-23)
PROC: XW033E5 Introduction of Remdesivir Anti-infective into Peripheral Vein, Percutaneous Approach, New Technology Group 5 (ICD-10-PCS; principal; 2020-10-23)
PROC: XW033H5 Introduction of Tocilizumab into Peripheral Vein, Percutaneous Approach, New Technology Group 5 (ICD-10-PCS; 2020-10-25)
PROC: 5A0955A Assistance with Respiratory Ventilation, Greater than 96 Consecutive Hours, High Flow/Velocity Cannula (ICD-10-PCS; 2020-10-25)
DX: U07.1 COVID-19 (principal); J12.82 Pneumonia due to coronavirus disease 2019; J96.01 Acute respiratory failure with hypoxia; N17.9 Acute kidney failure, unspecified; E66.01 Morbid (severe) obesity due to excess calories; I10 Essential (primary) hypertension; M54.5 Low back pain; K21.9 Gastro-esophageal reflux disease without esophagitis; E86.0 Dehydration; G89.29 Other chronic pain; N40.0 Benign prostatic hyperplasia without lower urinary tract symptoms; Z68.39 Body mass index [BMI] 39.0-39.9, adult; Z79.1 Long term (current) use of non-steroidal anti-inflammatories (NSAID); Z79.899 Other long term (current) drug therapy; Z87.891 Personal history of nicotine dependence; Z71.3 Dietary counseling and surveillance; Z90.89 Acquired absence of other organs; Z98.890 Other specified postprocedural states; Z90.49 Acquired absence of other specified parts of digestive tract; Z87.19 Personal history of other diseases of the digestive system
CPT/HCPCS: 36415; 36600; 71045; 80048; 80053; 82728; 82805; 83605; 83615; 83735; 84145; 85025; 85379; 85610; 85730; 86140; 86850; 86900; 86901; 87040; 93005; 94640; 94760; 96365; 96366; 96372; 96375; 99285

== ENCOUNTER → 2022-08-20 | Outpatient (CLI) | payer OTHER ==
--- NOTE | 2022-08-20 14:30 | MR ---
EXAMINATION TYPE: MR lumbar spine wo con DATE OF EXAM: 08/20/2022 2:04 PM COMPARISON: MRI 11/10/2018 CLINICAL INDICATION:Male, 51 years old with history of M54.50 LOW BACK PAIN; TECHNIQUE: Multi planar, multi sequence imaging was performed utilizing: T1-weighted, T2-weighted, a nd turbo inversion recovery imaging of the lumbar spine. IV Contrast: None. FINDINGS: Alignment: Scoliosis changes to the spine with dextroscoliosis apex L3 and levoscoliosis T11. Cord: The conus medullaris and the distal spinal cord appear unremarkable with regards to their signa l intensity and morphology. Bones/Discs: Scattered Modic endplate changes are seen throughout the spine most pronounced at L4-L5 and L5-S1. No bony edema identified on inversion recovery sequences. Mild disc desiccation is seen at multiple levels. T12-L1: No evidence of significant spinal canal stenosis or neural foraminal stenosis. L1-L2: No evidence of significant spinal canal stenosis or neural foraminal stenosis. L2-L3: Disc bulge and facet joint arthropathy result in mild spinal canal and mild bilateral neural f oraminal stenosis. L3-L4: Disc bulge with facet joint arthropathy are present there is effacement of the thecal sac from the left facet joint with mild displacement medially. Spinal canal is mildly narrowed. The neural fo ramen are mildly narrowed. L4-L5: Disc bulge and facet joint arthropathy result in mild spinal canal and mild bilateral neural f oraminal stenosis. L5-S1: The disc is rounded posterior morphology without significant spinal canal stenosis. Facet join t arthropathy with mild neural foraminal stenosis. IMPRESSION: 1. No definitive evidence of disc herniation or significant spinal canal stenosis. 2. Multilevel disc degeneration with associated osteoarthritic changes worse in the lower lumbar spi ne. The facet joint at L3-L4 on the left mildly displaces the thecal sac medially.
== END | disposition home or self-care (01) ==
LOC: RADMRIMAIN 13:02
PROVIDERS: ATTEND Physician Assistant
DX: M51.36 Other intervertebral disc degeneration, lumbar region (principal); M47.816 Spondylosis without myelopathy or radiculopathy, lumbar region
CPT/HCPCS: 72148

== ENCOUNTER → 2022-11-24 | Outpatient (CLI) | payer OTHER ==
--- NOTE | 2022-11-25 09:51 | CA ---
Transthoracic Echo Report Name: Abhi Camp Age: 52 Gender: M : 1970 Exam Date: 11/24/2022 14:05 Exam Location: [facility] Ht (in): 73 Wt (lb): 367 Ordering Physician: [facility], Clinic Attending/Referring Phys: Alessandra Rubio PAC [employer] Dejon Navarro, JUAN Procedure CPT: Indications: I10,R60.9 Cardiac Hx: HTN; SOB; Severe Obesity Technical Quality: Technically difficult study Contrast 1: Lumason Total Dose (mL): 8 Contrast 2: Total Dose (mL): MEASUREMENTS (Male / Female) Normal Values FINDINGS Left Ventricle Left ventricular ejection fraction is estimated at 50-55 %. Mild concentric left ventricular hypertrophy. Right Ventricle Normal right ventricular size and function. Right Atrium Normal right atrial size. Left Atrium Mild left atrial dilatation. Mitral Valve Structurally normal mitral valve. Trace to mild mitral regurgitation. Aortic Valve Trileaflet aortic valve. Diffuse thickening (sclerosis) of the aortic valve cusps without reduced excursion. Tricuspid Valve Trace to mild tricuspid regurgitation. Pulmonic Valve Pulmonic valve not well visualized. Pericardium Normal pericardium. No pericardial effusion. Aorta Normal size aortic root and proximal ascending aorta. CONCLUSIONS Technically difficult study for interpretation Normal LV systolic function Previewed by: Dr. Terrence Alford MD (Electronically Signed) Final Date: 25 November 2022 09:50
== END | disposition home or self-care (01) ==
LOC: RADECHMAIN 13:45
DX: I10 Essential (primary) hypertension (principal); R60.0 Localized edema
CPT/HCPCS: 93306; Q9950

== ENCOUNTER → 2023-05-19 | Outpatient (CLI) | payer OTHER | LOC: CPPFTMAIN 15:57 | DX: R06.02 Shortness of breath (principal) | CPT/HCPCS: 94060; 94726; 94729 ==

== ENCOUNTER → 2023-10-29 | Outpatient (CLI) | payer OTHER ==
--- NOTE | 2023-11-04 13:21 | CT ---
EXAMINATION TYPE: CT chest wo con CT DLP: mGycm, Automated exposure control for dose reduction was used. DATE OF EXAM: 10/29/2023 2:22 PM COMPARISON: Chest radiograph from same day. Multiple CTs of the chest with most recent on . CLINICAL INDICATION:Male, 53 years old with history of J84.10, Pulmonary fibrosis, unspecified; [facility], TECHNIQUE: Multiple axial images were obtained through the chest. Sagittal and coronal reformats were created for review. Contrast used: mL of (None if empty) Oral contrast used: (None if empty) FINDINGS: LUNGS/ PLEURA: The lung parenchyma appears unremarkable. AIRWAY: Patent and unremarkable. HEART: Upper limits of normal. MEDIASTINUM: No gross evidence of adenopathy. VASCULATURE: No aortic aneurysm. MUSCULOSKELETAL: No acute osseous abnormalities SOFT TISSUES/LYMPH NODES: Unremarkable. LOWER NECK: No significant findings. UPPER ABDOMEN: No significant findings. IMPRESSION: Unremarkable exam. No significant fibrosis seen. Follow up recommendations for incidental pulmonary nodules, if there are any, are per [employer] [place] [employer] [employer] or [employer]. [email or web address].org/articles/[email or web address]?[email or web address]
== END | disposition home or self-care (01) ==
LOC: RADCTMAIN 13:45
PROVIDERS: ATTEND Internal Medicine Critical Care Medicine
DX: J84.10 Pulmonary fibrosis, unspecified (principal)
CPT/HCPCS: 71250

== ENCOUNTER → 2024-05-22 | Outpatient (CLI) | payer OTHER ==
[2024-05-22 13:13] VITALS: BP 167/95; PULSE 72; RESP 16; TEMP 98
--- NOTE | 2024-05-22 15:02 | P.PAINPG ---
PQRS Measure Charge Sheet Comment: HISTORY OF PRESENT ILLNESS: A 53 yr old male as a referral from the [facility] presents today w severe and chronic LBP > 3 mo secondary to radiculopathy, spondylosis and facet arthropathy without myelopathy for evaluation. Pt states pain level is provoked at 8 /10 in intensity, constant, localized in the lumbar spine, predominantly axial, sharp in character w occasional shooting pain towards the RLE. Pain is provoked by standing/ sitting for periods > 40 min. Pain is alleviated by PT x 6 wks (LEs) which he is currently in, medications (Rockmart, Mobic), repositioning and rest . PMH: OA, GERD, HTN PSH: Appendectomy, Tonsillectomy SH: Former tobacco user, Occ ETOH use, No illicit drug use FH: Fa- Unknown (foster child). Mo- Unable to obtain All: See list Meds: See list REVIEW OF ORGAN SYSTEMS: CONSTITUTIONAL: No fevers or chills. No recent weight loss. NEUROLOGICAL: + numbness and tingling along the distal extremities. No seizure disorders or headaches. MUSCULOSKELETAL: + pain PSYCHIATRIC: Denies current depression or suicidal thoughts. Physical Examinations : Constitutional : Cooperative , not in acute distress . Neurologic : Cranial nerve II to XII intact. No focal neurological deficits. Psychiatric : alert & oriented x 3. Matching mood & appropriate affect. Judgment & insight intact. Musculoskeletal : Cervical Spine Motor strength in the deltoid and biceps: Normal right side. Normal Left side Motor strength biceps and the wrist extensors: Normal right side . Normal left side Motor strength in the triceps muscle: Normal right side. Normal left side Deep tendon reflexes: Normal at the biceps. Normal at Brachioradialis. Normal at triceps Vertebral body tenderness to deep palpation over Cervical facet loading test: positive bilaterally Spurling test: positive bilaterally Neck distraction test: positive bilaterally Ancelmo sign: positive bilaterally Lumbar spine Motor strength lower extremities ,thigh and legs 5/5 Right side , 5/5 Left side Deep tendon reflexes : Normal Knee Jerk. Normal Ankle Jerk Vertebral body tenderness over L5 Barroso Test positive R L5-S1 Lumbar facet Loading Test: positive Right / positive Left Range of motion of the lumbar spine Flexion 30 degrees, extension 10 degrees Straight Leg Raise test: Left/ Right positive at degrees Katelynn test: positive right / positive left. Severe tenderness over the Sacroiliac joint on the Right / Left sides Gaenslen test: positive bilaterally Seated flexion test: positive bilaterally. Sacral spine : Severe tenderness over the Sacroiliac joint: right side / left side Range of motion: Flexion of the lumbar spine <60 degrees Range of motion: Extension of the lumbar spine <20 degrees Gaenslen's Test positive Katelynn test: positive right side / left side Thigh Thrust Test Sacral Thrust Test Imaging: MRI non contrast lumbar spine from 08/20/22 reviewed Assessment/ Plan : Lumbar radiculopathy Recommendation of KRISTA L5-S1 #1 and medication management. Risks, benefits of procedure discussed and patient verbalized understanding. Admits to anti- coagulant use or medical history of diabetes. Protocol for discontinuation/ continuation of medications presley procedure discussed. Minimal anesthesia provided, if clinically indicated, consisting of Versed and Fentanyl. Rockmart 10/325mg #90 w 1 RF. Post- dated script and weaned down from what pt receives at [facility]. Use, side effects, adverse reactions, safe storage discussed. Opiate/ narcotic agreement signed 05/22/24. All questions answered. I have spent greater than 30 minutes on patient care today. Dr Pond was available by phone for the evaluation of this patient. The time was used to review the medical records including relevant urine studies and Prescription history (MAPs), review of the available imaging, evaluation and examination of the patient, coordination of care with the medical staff and if applicable referring physicians, as well as creation of the medical record Home Medications: Ambulatory Orders Cyclobenzaprine [Flexeril] 10 mg PO HS PRN 10/22/20 Meloxicam [Mobic] 7.5 mg PO DAILY 10/22/20 Prazosin HCl 4 mg PO HS 10/22/20 amLODIPine [Norvasc] 10 mg PO DAILY 10/22/20 atenoloL 25 mg PO BID 10/22/20 traZODone HCL 150 mg PO HS PRN 10/22/20 Albuterol Inhaler [Ventolin Hfa Inhaler] 2 puff INHALATION RT-QID puff 10/30/20 Benzonatate [Tessalon Perles] 100 mg PO TID PRN #30 cap 10/30/20 Cholecalciferol [Vitamin D3 (25 Mcg = 1000 Iu)] 50 mcg PO DAILY #60 tablet 10/30/20 dexAMETHasone [Dexamethasone] 6 mg PO DAILY #15 tablet 10/30/20 guaiFENesin [Mucinex] 1,200 mg PO Q12HR #30 tablet.er 10/30/20 Albuterol Sulfate [Albuterol Sulfate Hfa] 1 puff PO Q4-6H #8.5 gm 04/30/23 Codeine Phosphate/Guaifenesin [Codeine Phosphate/Guaifenesin 10-100 mg/5 ml] 5 ml PO Q6H 3 Days #60 ml 04/30/23 predniSONE [Deltasone] 20 mg PO BID #10 tab 04/30/23 HYDROcodone/APAP 10-325MG [Rockmart 10-325] 2 tab PO Q8H PRN 30 Days #90 tab 05/22/24 Controlled Substance Measures - Controlled Substance Measures Is patient prescribed a controlled substance at discharge?: Yes When asked, does pt state using other controlled substances?: No If prescribed controlled substance>3 days was MAPS reviewed?: Yes If Rx opioid, was Start Talking consent form obtained?: Yes Was information provided regarding opioid addiction?: Yes
== END ==
LOC: PNWHC3 12:36
PROVIDERS: ATTEND Specialist
DX: M54.50 Low back pain, unspecified
CPT/HCPCS: 99202; 99211

== ENCOUNTER 2024-06-09 12:02 | Day surgery (SDC) | payer OTHER ==
[2024-06-06 12:30] VITALS: BMI 48.1
[~2024-06-09 12:02] MED LIST: LACTATED RINGERS 1,000 ML IV SCH
[2024-06-09 12:33] VITALS: TEMP 97.9
[2024-06-09] MEDS ORDERED: IOPAMIDOL M200 10 ML VIAL ONE (13:15)
[2024-06-09] MEDS ORDERED: TRIAMCINOLONE ACETONIDE 40 MG/ML 1 ML VIAL ONE (13:15)
--- NOTE | 2024-06-09 13:28 | P.PCN ---
Date of Procedure: 06/09/24 Surgeon: Miriam Hernandez Pathology: none sent Condition: stable Disposition: PACU Description of Procedure: PREOPERATIVE DIAGNOSIS: 1-Lumbar radiculopathy 2- Lumber Degenerative Disc Diseases. POSTOPERATIVE DIAGNOSIS: 1-Lumbar radiculopathy. 2-Lumbar Degenerative Disc Diseases PROCEDURE 1. Lumbar epidural steroid injection under fluoroscopic guidance at the L5-S1 level. 2. Lumbar epidurogram. ANESTHESIA: Local only with 1% lidocaine EBL: Minimal PROCEDURE INDICATION: The patient with low back pain and radiculitis symptoms unresponsive to conservative treatment. Fluoroscopy was used to optimize visualization of the needle placement and to maximize safety. PROCEDURE DESCRIPTION / TECHNIQUE: The patient was seen and identified in the preoperative area. Risks, benefits, complications including but not limited to infections ,bleeding ,allergic reaction to the medications ,nerve damage and not complete pain relief , and alternatives were discussed with the patient. The patient agreed to proceed with the procedure and signed the consent. IV was started, and vital signs were stable. Patient was taken to the OR and time out was completed. The patient was placed in the prone position on procedure table and a pillow was placed under the abdomen to reduce lumbar lordosis. The lumbosacral area was prepped and draped in the usual sterile fashion with ChloraPrep.Patient was closely monitored during the procedure. Conscious sedation was used during the procedure to decrease patients anxiety. Vital signs were monitered during the entire procedure. Using anterior-posterior fluoroscopy, the L5-S1 interlaminar space was identified and the skin over this site was marked and then infiltrated with 1% lidocaine subcutaneously. Subsequently, a 18-gauge , 6"Tuohy epidural needle was inserted and advanced toward the epidural space using the Loss of resistance to air technique and guided by AP and lateral fluoroscopy. The epidural space was found at about 13 cm from skin.The correct needle position in the epidural space was verified with the injection of 1 mL of the water soluble contrast dye Omnipaque 180 contrast and observing an excellent epidurogram with the epidural spread of the dye, after negative aspiration for blood and CSF and in the absence of paresthesias. Again after negative aspiration, a 8 ml mixture containing 80 mg of Kenalog and 5 ml of preservative free Normal Saline, and 2 ml of preservative free Ropivacaine 0.5% solution was injected and a washout of epidurogram was seen. Needle was withdrawn intact, skin was cleansed, and bandages were applied. patient tolerated procedure well and was transferred to PACU in stable condition.A copy of the needle placement picture was saved to the fluoroscopy machine. COMPLICATIONS: None DISPOSITION / PLANS: The patient was placed in a supine position and transferred to the recovery area in a stable condition for observation. There was no evidence of lower extremity motor or sensory deficit after the procedure. Patient was discharged from the recovery room after meeting discharge criteria. Home discharge instructions were given to the patient by the staff. The patient was reexamined prior to discharge. The patient will schedule a follow up in the clinic in 2-4 weeks.
[2024-06-09 13:44] VITALS: RESP 16
[2024-06-09 13:49] VITALS: BP 173/95; PULSE 62
--- NOTE | 2024-06-09 21:42 | FL ---
Fluoroscopy INDICATION: Pain FINDINGS: Fluoroscopy time: 12.4 seconds. Total dose area product (DAP) in uGy*m?, mGy*cm? (or similar): 0.25530 Images obtained: 3. [place] are directed towards the lumbar spine region IMPRESSION: 1. Documentation of fluoroscopy. [facility] , 06/09/2024 9:40 PM
== END 2024-06-09 13:50 | disposition home or self-care (01) ==
LOC: ORPAIN 12:02
PROVIDERS: ATTEND Anesthesiology
DX: M51.16 Intervertebral disc disorders with radiculopathy, lumbar region (principal); Z79.899 Other long term (current) drug therapy
CPT/HCPCS: 62323

== ENCOUNTER → 2024-06-21 | Outpatient (CLI) | payer OTHER ==
[2024-06-21 13:31] VITALS: BP 169/87; PULSE 72; RESP 16
--- NOTE | 2024-06-21 14:20 | P.PAINPG ---
PQRS Measure Charge Sheet Comment: HISTORY OF PRESENT ILLNESS: A 53 yr old male presents today w severe and chronic LBP > 3 mo secondary to radiculopathy, spondylosis and facet arthropathy without myelopathy for evaluation s/p KRISTA L5-S1 #1. Pt states he experienced 0 % pain relief x 2 wks s/p procedure. Pt states pain level is provoked at 8-9 /10 in intensity, constant, localized in the lumbar spine, predominantly axial, sharp in character w occasional shooting pain towards the RLE. Pain is provoked by standing/ sitting for periods > 40 min. Pain is alleviated by PT x 10 wks (LEs) which he is currently in, medications, repositioning and rest . Interventional procedures include KRISTA L5-S1 x1 Medications include Purcell, Mobic REVIEW OF ORGAN SYSTEMS: CONSTITUTIONAL: No fevers or chills. No recent weight loss. NEUROLOGICAL: + numbness and tingling along the distal extremities. No seizure disorders or headaches. MUSCULOSKELETAL: + pain PSYCHIATRIC: Denies current depression or suicidal thoughts. Physical Examinations : Constitutional : Cooperative , not in acute distress . Neurologic : Cranial nerve II to XII intact. No focal neurological deficits. Psychiatric : alert & oriented x 3. Matching mood & appropriate affect. Judgment & insight intact. Musculoskeletal : Cervical Spine Motor strength in the deltoid and biceps: Normal right side. Normal Left side Motor strength biceps and the wrist extensors: Normal right side . Normal left side Motor strength in the triceps muscle: Normal right side. Normal left side Deep tendon reflexes: Normal at the biceps. Normal at Brachioradialis. Normal at triceps Vertebral body tenderness to deep palpation over Cervical facet loading test: positive bilaterally Spurling test: positive bilaterally Neck distraction test: positive bilaterally Ancelmo sign: positive bilaterally Lumbar spine Motor strength lower extremities ,thigh and legs 5/5 Right side , 5/5 Left side Deep tendon reflexes : Normal Knee Jerk. Normal Ankle Jerk Vertebral body tenderness over L5 Barroso Test positive R L5-S1 Lumbar facet Loading Test: positive Right / positive Left Range of motion of the lumbar spine Flexion 30 degrees, extension 10 degrees Straight Leg Raise test: Left/ Right positive at degrees Katelynn test: positive right / positive left. Severe tenderness over the Sacroiliac joint on the Right / Left sides Gaenslen test: positive bilaterally Seated flexion test: positive bilaterally. Sacral spine : Severe tenderness over the Sacroiliac joint: right side / left side Range of motion: Flexion of the lumbar spine <60 degrees Range of motion: Extension of the lumbar spine <20 degrees Gaenslen's Test positive Katelynn test: positive right side / left side Thigh Thrust Test Sacral Thrust Test Imaging: MRI non contrast lumbar spine from 08/20/22 reviewed Assessment/ Plan : Lumbar radiculopathy Recommendation of medication management. Post dated Purcell 10/325mg #90 w 1 RF. [facility] [place] if off-line so sent to [facility]. Add Ibu 600mg #90 w1 RF. Use, side effects, adverse reactions, safe storage discussed. Opiate/ narcotic agreement signed 05/22/24. All questions answered. I have spent greater than 30 minutes on patient care today. Dr Pond was available by phone for the evaluation of this patient. The time was used to review the medical records including relevant urine studies and Prescription history (MAPs), review of the available imaging, evaluation and examination of the patient, coordination of care with the medical staff and if applicable referring physicians, as well as creation of the medical record - Pain Location Lower Back Non-Pharmacological Interventions: Physical Therapy Pharmacological Interventions: Epidural, Scheduled Medication PQRS Narrative: Narcotic Agreement Date Signed 05/22/24 Hx Alcohol Use (MH) No Home Medications: Ambulatory Orders Cyclobenzaprine [Flexeril] 10 mg PO HS PRN 10/22/20 Prazosin HCl 4 mg PO HS 10/22/20 amLODIPine [Norvasc] 10 mg PO DAILY 10/22/20 atenoloL 25 mg PO BID 10/22/20 traZODone HCL 150 mg PO HS PRN 10/22/20 Albuterol Inhaler [Ventolin Hfa Inhaler] 2 puff INHALATION RT-QID puff 10/30/20 Cholecalciferol [Vitamin D3 (25 Mcg = 1000 Iu)] 50 mcg PO DAILY #60 tablet 10/30/20 Atorvastatin [Lipitor] 20 mg PO HS 06/06/24 Fluticasone Propion/Salmeterol [Wixela 500-50 Inhub] 1 inhalation PO DAILY 06/06/24 Furosemide [Lasix] 20 mg PO DAILY 06/06/24 Losartan [Cozaar] 25 mg PO DAILY 06/06/24 Mirtazapine 30 mg PO HS 06/06/24 Tiotropium 2.5 Mcg/Puff [Spiriva Respimat 2.5 Mcg] 1 puff INHALATION BID 06/06/24 HYDROcodone/APAP 10-325MG [Purcell 10-325] 1 tab PO Q8HR PRN 30 Days #90 tab 06/21/24 HYDROcodone/APAP 10-325MG [Purcell 10-325] 1 tab PO TID PRN 30 Days #90 tab 06/21/24 Ibuprofen 600 mg PO TID PRN 30 Days #90 tab 06/21/24 Controlled Substance Measures - Controlled Substance Measures Is patient prescribed a controlled substance at discharge?: Yes When asked, does pt state using other controlled substances?: No If prescribed controlled substance>3 days was MAPS reviewed?: Yes
== END ==
LOC: PNWHC3 12:53
PROVIDERS: ATTEND Specialist
DX: M47.26 Other spondylosis with radiculopathy, lumbar region (principal)
CPT/HCPCS: 99211

== ENCOUNTER → 2024-09-05 | Outpatient (CLI) | payer OTHER ==
[2024-09-05 13:45] VITALS: BP 156/96; PULSE 77; RESP 16; TEMP 97.8
--- NOTE | 2024-09-05 15:52 | P.PAINPG ---
Objective - Vital Signs Vital signs: Intake & Output 09/04/24 09/05/24 09/05/24 18:59 06:59 18:59 Weight 164.2 kg PQRS Measure Charge Sheet Comment: HISTORY OF PRESENT ILLNESS: A 53 yr old male presents today w severe and chronic LBP > 3 mo secondary to radiculopathy, spondylosis and facet arthropathy without myelopathy for medication refills. Pt states pain level is provoked at 9 /10 in intensity, constant, localized in the lumbar spine, predominantly axial, sharp in character w occasional shooting pain towards the RLE. Pain is provoked by standing/ sitting for periods > 40 min. Pain is alleviated by PT x 16 wks (LEs) which he is currently in, medications,use of a cane for ambulatory assistance, repositioning and rest . Interventional procedures include KRISTA L5-S1 x1 Medications include Mobic REVIEW OF ORGAN SYSTEMS: CONSTITUTIONAL: No fevers or chills. No recent weight loss. NEUROLOGICAL: + numbness and tingling along the distal extremities. No seizure disorders or headaches. MUSCULOSKELETAL: + pain PSYCHIATRIC: Denies current depression or suicidal thoughts. Physical Examinations : Constitutional : Cooperative , not in acute distress . Neurologic : Cranial nerve II to XII intact. No focal neurological deficits. Psychiatric : alert & oriented x 3. Matching mood & appropriate affect. Judgment & insight intact. Musculoskeletal : Cervical Spine Motor strength in the deltoid and biceps: Normal right side. Normal Left side Motor strength biceps and the wrist extensors: Normal right side . Normal left side Motor strength in the triceps muscle: Normal right side. Normal left side Deep tendon reflexes: Normal at the biceps. Normal at Brachioradialis. Normal at triceps Vertebral body tenderness to deep palpation over Cervical facet loading test: positive bilaterally Spurling test: positive bilaterally Neck distraction test: positive bilaterally Ancelmo sign: positive bilaterally Lumbar spine Motor strength lower extremities ,thigh and legs 5/5 Right side , 5/5 Left side Deep tendon reflexes : Normal Knee Jerk. Normal Ankle Jerk Vertebral body tenderness over L5 Barroso Test positive R L5-S1 Lumbar facet Loading Test: positive Right / positive Left Range of motion of the lumbar spine Flexion 30 degrees, extension 10 degrees Straight Leg Raise test: Left/ Right positive at degrees Katelynn test: positive right / positive left. Severe tenderness over the Sacroiliac joint on the Right / Left sides Gaenslen test: positive bilaterally Seated flexion test: positive bilaterally. Sacral spine : Severe tenderness over the Sacroiliac joint: right side / left side Range of motion: Flexion of the lumbar spine <60 degrees Range of motion: Extension of the lumbar spine <20 degrees Gaenslen's Test positive Katelynn test: positive right side / left side Thigh Thrust Test Sacral Thrust Test Imaging: MRI non contrast lumbar spine from 08/20/22 reviewed Assessment/ Plan : Levoscoliosis, Lumbar radiculopathy Recommendation of R TFESI L4-L5/ L5-S1 #1. Use, side effects, adverse reactions, safe storage discussed. Protocol for discontinuation/ continuation of medications presley procedure discussed. Opiate/ narcotic agreement signed 05/22/24 but [facility] not [facility] [place] due to ROSENDO diagnosis. States Tylenol #3 do not work. All questions answered. I have spent greater than 30 minutes on patient care today. Dr Pond was available by phone for the evaluation of this patient. The time was used to review the medical records including relevant urine studies and Prescription history (MAPs), review of the available imaging, evaluation and examination of the patient, coordination of care with the medical staff and if applicable referring physicians, as well as creation of the medical record PQRS Narrative: Narcotic Agreement Date Signed 05/22/24 Hx Alcohol Use (MH) No Home Medications: Ambulatory Orders Cyclobenzaprine [Flexeril] 10 mg PO HS PRN 10/22/20 Prazosin HCl 4 mg PO HS 10/22/20 amLODIPine [Norvasc] 10 mg PO DAILY 10/22/20 atenoloL 25 mg PO BID 10/22/20 traZODone HCL 150 mg PO HS PRN 10/22/20 Albuterol Inhaler [Ventolin Hfa Inhaler] 2 puff INHALATION RT-QID puff 10/30/20 Cholecalciferol [Vitamin D3 (25 Mcg = 1000 Iu)] 50 mcg PO DAILY #60 tablet 10/30/20 Atorvastatin [Lipitor] 20 mg PO HS 06/06/24 Fluticasone Propion/Salmeterol [Wixela 500-50 Inhub] 1 inhalation PO DAILY 06/06/24 Furosemide [Lasix] 20 mg PO DAILY 06/06/24 Losartan [Cozaar] 25 mg PO DAILY 06/06/24 Mirtazapine 30 mg PO HS 06/06/24 Tiotropium 2.5 Mcg/Puff [Spiriva Respimat 2.5 Mcg] 1 puff INHALATION BID 06/06/24 Diclofenac Sodium Gel [Voltaren 1% Gel] 50 gm TOPICAL BID 30 Days #1 each 09/05/24 Controlled Substance Measures - Controlled Substance Measures Is patient prescribed a controlled substance at discharge?: Yes When asked, does pt state using other controlled substances?: No If prescribed controlled substance>3 days was MAPS reviewed?: Yes
== END ==
LOC: PNWHC3 12:31
PROVIDERS: ATTEND Specialist
DX: M54.16 Radiculopathy, lumbar region (principal); M41.86 Other forms of scoliosis, lumbar region
CPT/HCPCS: 99211

== ENCOUNTER 2024-09-21 12:11 | Day surgery (SDC) | payer OTHER ==
[2024-09-21 12:44] VITALS: TEMP 97.9
[2024-09-21] MEDS ORDERED: methylPREDNISolone ACETATE 80 MG/ML 1 ML VIAL ONE (13:24)
[2024-09-21] MEDS ORDERED: IOPAMIDOL M200 10 ML VIAL ONE (13:24)
--- NOTE | 2024-09-21 13:35 | P.PCN ---
Date of Procedure: 09/21/24 Procedure(s) Performed: PREOPERATIVE DIAGNOSIS: 1-Lumbar radiculopathy . 2-lumbar spondylosis with lumbar facet arthropathy without myelopathy POSTOPERATIVE DIAGNOSIS: 1-lumbar radiculopathy. 2-lumbar spondylosis with facet arthropathy without myelopathy PROCEDURE 1. Transforaminal epidural steroid injection under fluoroscopic guidance at right L4-5, L5-S1 level. (Fluoro images stored on file in the radiology Department ) 2. Lumbar epidurogram . ANESTHESIA: Local with 1% lidocaine 4 ml. EBL: Minimal PROCEDURE INDICATION: The patient with low back pain and radiculopathy symptoms unresponsive to conservative treatment. PROCEDURE DESCRIPTION / TECHNIQUE: The patient was seen and identified in the preoperative area. Risks, benefits, complications, and alternatives were discussed with the patient. The patient agreed to proceed with the procedure and signed the consent. IV was started, and vital signs were stable. Patient was taken to the OR and time out was completed. The patient was placed in the prone position on procedure table and a pillow was placed under the abdomen to reduce lumbar lordosis. The lumbosacral area was prepped and draped in the usual sterile fashion. Critical pause was taken. Vital signs were closely monitored during the procedure. Using oblique fluoroscopy, the chin of the ``[place]olo dog at Right L4-5 level was identified, and the skin and deeper tissues just below was localized with 1% lidocaine. Subsequently, a 22-gauge 7 -inches long spinal needle was advanced under a tunneled view fluoroscopic guidance just underneath the chin of the ``[place]olo dog at the right L4-5 Under lateral fluoroscopy, the needle was then advanced to the posterior border of the interforaminal space. After negative aspiration of CSF and blood and with no paresthesias, 1 mL Isovue 200 contrast dye was injected excellent epidurogram and outlining of the nerve root Subsequently, 3 mL of block solution containing 40 mg Depo-Medrol and 2 mL of 0.9% normal saline PF was injected. Needle was removed and the same procedure was repeated at the right L5-S1 level. At the end of the procedure, skin was cleansed, and bandages were applied. COMPLICATIONS:none DISPOSITION / PLANS: The patient was placed in a supine position and transferred to the recovery area in a stable condition for observation. There was no evidence of lower extremity motor or sensory deficit after the procedure. Patient was discharged from the recovery room after meeting discharge criteria. Home discharge instructions were given to the patient by the staff. The patient was reexamined prior to discharge.
[2024-09-21 13:57] VITALS: BP 149/83; PULSE 75; RESP 14
--- NOTE | 2024-09-21 14:00 | FL ---
Intraoperative/procedural fluoroscopic services were provided lumbar transforaminal injection. Total fluoroscopy time is 4.3 seconds with a total of 2 submitted images to PACS. Total DAP [id number] mGym2. Please see the operative note for further details. [facility], , 09/21/2024 1:58 PM
== END 2024-09-21 14:02 | disposition home or self-care (01) ==
LOC: ORPAIN 12:11
PROVIDERS: ATTEND Specialist
DX: M47.26 Other spondylosis with radiculopathy, lumbar region (principal)
CPT/HCPCS: 64483; 64484; Q9966; J1010

== ENCOUNTER → 2024-10-09 | Outpatient (CLI) | payer OTHER ==
[2024-10-09 12:56] VITALS: BP 151/88; PULSE 64; RESP 16; TEMP 97.3
--- NOTE | 2024-10-09 16:50 | P.PAINPG ---
PQRS Measure Charge Sheet Comment: HISTORY OF PRESENT ILLNESS: A 53 yr old male presents today w severe and chronic LBP > 3 mo secondary to radiculopathy, spondylosis and facet arthropathy without myelopathy for medication refills and evaluation s/p R TFESI L4-L5/ L5-S1 #1. Pt states he experienced 80% pain relief x 3 wks s/p procedure. Pt states pain level is provoked at 8 /10 in intensity, constant, localized in the lumbar spine, predominantly axial, sharp in character without shooting pain. Pain is provoked by standing for periods > 30 min. Pain is alleviated by PT x 16 wks (LEs) which he is currently in, medications, use of a cane for ambulatory assistance, repositioning and rest . Pt presents in a wheelchair today that is very small for his body habitus. Interventional procedures include KRISTA L5-S1 x1, R TFESI L4-L5/ L5-S1 x1 Medications include Mobic REVIEW OF ORGAN SYSTEMS: CONSTITUTIONAL: No fevers or chills. No recent weight loss. NEUROLOGICAL: + numbness and tingling along the distal extremities. No seizure disorders or headaches. MUSCULOSKELETAL: + pain PSYCHIATRIC: Denies current depression or suicidal thoughts. Physical Examinations : Constitutional : Cooperative , not in acute distress . Neurologic : Cranial nerve II to XII intact. No focal neurological deficits. Psychiatric : alert & oriented x 3. Matching mood & appropriate affect. Judgment & insight intact. Musculoskeletal : Cervical Spine Motor strength in the deltoid and biceps: Normal right side. Normal Left side Motor strength biceps and the wrist extensors: Normal right side . Normal left side Motor strength in the triceps muscle: Normal right side. Normal left side Deep tendon reflexes: Normal at the biceps. Normal at Brachioradialis. Normal at triceps Vertebral body tenderness to deep palpation over Cervical facet loading test: positive bilaterally Spurling test: positive bilaterally Neck distraction test: positive bilaterally Ancelmo sign: positive bilaterally Lumbar spine Motor strength lower extremities ,thigh and legs 5/5 Right side , 5/5 Left side Deep tendon reflexes : Normal Knee Jerk. Normal Ankle Jerk Vertebral body tenderness over L5 Barroso Test positive R L5-S1 Lumbar facet Loading Test: positive Right / positive Left Range of motion of the lumbar spine Flexion 30 degrees, extension 10 degrees Straight Leg Raise test: Left/ Right positive at degrees Katelynn test: positive right / positive left. Severe tenderness over the Sacroiliac joint on the Right / Left sides Gaenslen test: positive bilaterally Seated flexion test: positive bilaterally. Sacral spine : Severe tenderness over the Sacroiliac joint: right side / left side Range of motion: Flexion of the lumbar spine <60 degrees Range of motion: Extension of the lumbar spine <20 degrees Gaenslen's Test positive Katelynn test: positive right side / left side Thigh Thrust Test Sacral Thrust Test Imaging: MRI non contrast lumbar spine from 08/20/22 reviewed Assessment/ Plan : Levoscoliosis, Lumbar radiculopathy Will manage residual pain and may RTC on an as needed basis. Pt receiving SI injection at Dr Barrera's office in 1 wk. All questions answered. I have spent greater than 30 minutes on patient care today. Dr Pond was available by phone for the evaluation of this patient. The time was used to review the medical records including relevant urine studies and Prescription history (MAPs), review of the available imaging, evaluation and examination of the patient, coordination of care with the medical staff and if applicable referring physicians, as well as creation of the medical record PQRS Narrative: Narcotic Agreement Date Signed 05/22/24 Hx Alcohol Use (MH) No Home Medications: Ambulatory Orders Cyclobenzaprine [Flexeril] 10 mg PO HS PRN 10/22/20 Prazosin HCl 4 mg PO HS 10/22/20 amLODIPine [Norvasc] 10 mg PO DAILY 10/22/20 atenoloL 25 mg PO BID 10/22/20 traZODone HCL 150 mg PO HS PRN 10/22/20 Albuterol Inhaler [Ventolin Hfa Inhaler] 2 puff INHALATION RT-QID puff 10/30/20 Cholecalciferol [Vitamin D3 (25 Mcg = 1000 Iu)] 50 mcg PO DAILY #60 tablet 10/30/20 Atorvastatin [Lipitor] 20 mg PO HS 06/06/24 Fluticasone Propion/Salmeterol [Wixela 500-50 Inhub] 1 inhalation PO DAILY 06/06/24 Furosemide [Lasix] 20 mg PO DAILY 06/06/24 Losartan [Cozaar] 25 mg PO DAILY 06/06/24 Mirtazapine 30 mg PO HS 06/06/24 Tiotropium 2.5 Mcg/Puff [Spiriva Respimat 2.5 Mcg] 1 puff INHALATION BID 06/06/24 Diclofenac Sodium Gel [Voltaren 1% Gel] 50 gm TOPICAL BID 30 Days #1 each 09/05/24 Controlled Substance Measures - Controlled Substance Measures Is patient prescribed a controlled substance at discharge?: Yes When asked, does pt state using other controlled substances?: No If prescribed controlled substance>3 days was MAPS reviewed?: Yes
== END ==
LOC: PNWHC3 12:28
PROVIDERS: ATTEND Specialist
DX: M54.16 Radiculopathy, lumbar region (principal); M41.86 Other forms of scoliosis, lumbar region
CPT/HCPCS: 99211

== ENCOUNTER → 2025-02-28 | Outpatient (CLI) | payer OTHER ==
[2025-02-28 13:07] VITALS: PULSE 73; RESP 11
--- NOTE | 2025-02-28 14:21 | P.PAINPG ---
PQRS Measure Charge Sheet Comment: HISTORY OF PRESENT ILLNESS: A 54 yr old male presents today w severe and chronic LBP > 3 mo secondary to radiculopathy, spondylosis and facet arthropathy without myelopathy for medication refills. Pt states pain level is provoked at 8 /10 in intensity, constant, localized in the lumbar spine, predominantly axial, sharp in character without shooting pain. Pain is provoked by standing for periods > 30 min. Pain is alleviated by PT x 16 wks (LEs) which he is currently in, medications, use of a cane for ambulatory assistance, repositioning and rest . Pt presents in a wheelchair today that is very small for his body habitus. Interventional procedures include KRISTA L5-S1 x1, R TFESI L4-L5/ L5-S1 x1, BL SI (01/[address] Barrera) Medications include Mobic REVIEW OF ORGAN SYSTEMS: CONSTITUTIONAL: No fevers or chills. No recent weight loss. NEUROLOGICAL: + numbness and tingling along the distal extremities. No seizure disorders or headaches. MUSCULOSKELETAL: + pain PSYCHIATRIC: Denies current depression or suicidal t houghts. Physical Examinations : Constitutional : Cooperative , not in acute distress . Neurologic : Cranial nerve II to XII intact. No focal neurological deficits. Psychiatric : alert & oriented x 3. Matching mood & appropriate affect. Judgment & insight intact. Musculoskeletal : Cervical Spine Motor strength in the deltoid and biceps: Normal right side. Normal Left side Motor strength biceps and the wrist extensors: Normal right side . Normal left side Motor strength in the triceps muscle: Normal right side. Normal left side Deep tendon reflexes: Normal at the bi ceps. Normal at Brachioradialis. Normal at triceps Vertebral body tenderness to deep palpation over Cervical facet loading test: positive bilaterally Spurling test: positive bilaterally Neck distraction test: positive bilaterally Ancelmo sign: positive bilaterally Lumbar spine Motor strength lower extremities ,thigh and legs 5/5 Right side , 5/5 Left side Deep tendon reflexes : Normal Knee Jerk. Normal Ankle Jerk Vertebral body tenderness over L5 Barroso Test positive R L5-S1 Lumbar facet Loading Test: positive Right / positive Left Range of motion of the lumbar spine Flexion 30 degrees, extension 10 degrees Straight Leg Raise test: Left/ Right positive at degrees Katelynn test: positive right / positive left. Severe tenderness over the Sacroiliac joint on the Right / Left sides Gaenslen test: positive bilaterally Seated flexion test: positive bilaterally. Sacral spine : Severe tenderness over the Sacroiliac joint: right side / left side Range of motion: Flexion of the lumbar spine <60 degrees Range of motion: Extension of the lumbar spine <20 degrees Gaenslen's Test positive Katelynn test: positive right side / left side Thigh Thrust Test Sacral Thrust Test Imaging: MRI non contrast lumbar spine from 08/20/22 reviewed Awaiting MRI non contrast lumbar spine 2024. SALLY sent. Assessment/ Plan : Levoscoliosis, Lumbar radiculopathy Recommendation of R TFESI L4-L5, L5-S1 #2. Risks,benefits of procedure discussed and pt verbalized understanding. Protocol for discontinuation/ continuation of medications presley procedure discussed. All questions answered. I have spent greater than 30 minutes on patient care today. Dr Pond was available by phone for the evaluation of this patient. The time was used to review the medical records including relevant urine studies and Prescription history (MAPs), review of the available imaging, evaluation and examination of the patient, coordination of care with the medical staff and if applicable referring physicians, as well as creation of the medical record PQRS Narrative: Narcotic Agreement Date Signed 05/22/24 Hx Alcohol Use (MH) No Home Medications: Ambulatory Orders Cyclobenzaprine [Flexeril] 10 mg PO HS PRN 10/22/20 Prazosin HCl 4 mg PO HS 10/22/20 amLODIPine [Norvasc] 10 mg PO DAILY 10/22/20 atenoloL 25 mg PO BID 10/22/20 traZODone HCL 150 mg PO HS PRN 10/22/20 Albuterol Inhaler [Ventolin Hfa Inhaler] 2 puff INHALATION RT-QID puff 10/30/20 Cholecalciferol [Vitamin D3 (25 Mcg = 1000 Iu)] 50 mcg PO DAILY #60 tablet 10/30/20 Atorvastatin [Lipitor] 20 mg PO HS 06/06/24 Fluticasone Propion/Salmeterol [Wixela 500-50 Inhub] 1 inhalation PO DAILY 06/06/24 Furosemide [Lasix] 20 mg PO DAILY 06/06/24 Losartan [Cozaar] 25 mg PO DAILY 06/06/24 Mirtazapine 30 mg PO HS 06/06/24 Tiotropium 2.5 Mcg/Puff [Spiriva Respimat 2.5 Mcg] 1 puff INHALATION BID 06/06/24 Diclofenac Sodium Gel [Voltaren 1% Gel] 50 gm TOPICAL BID 30 Days #1 each 09/05/24 Controlled Substance Measures - Controlled Substance Measures Is patient prescribed a controlled substance at discharge?: No
== END ==
LOC: PNWHC3 12:27
PROVIDERS: ATTEND Specialist
DX: M47.26 Other spondylosis with radiculopathy, lumbar region (principal); M41.9 Scoliosis, unspecified
CPT/HCPCS: 99212